=== PATIENT | female | born 1955 | race African-American/Black ===

== ENCOUNTER 2016-12-03 14:45 | Inpatient (IN) | payer OTHER ==
[2016-12-03 15:14] VITALS: BMI 24.4
--- NOTE | 2016-12-03 18:25 | HP ---
CIWA Score - CIWA Score Nausea/Vomitin-Mild Nausea/No Vomiting Muscle Tremors: 4-Moderate,w/Arms Extend Anxiety: 4-Mod. Anxious/Guarded Agitation: 4-Moderately Restless Paroxysmal Sweats: 1-Minimal Palms Moist Orientation: 0-Oriented Tacttile Disturbances: 0-None Auditory Disturbances: 0-None Visual Disturbances: 0-None Headache: 0-None Present CIWA-Ar Total Score: 14 Admission ROS B[facility] - HPI Chief Complaint: WITHDRAWAL SX Allergies/Adverse Reactions: Allergies Allergy/AdvReac Type Severity Reaction Status Date / Time Penicillins Allergy Severe Swelling Verified 12/03/16 16:48 History of Present Illness: 61 YEARS OLD FEMALE WITH LONG HISTORY OF ALCOHOL NICOTINE DEPENDENCE HAS SEIZURE ASTHMA AND DEPRESSION IS ADMITTED TO DETOX Exam Limitations: No Limitations - Ebola screening Have you traveled outside of the country in the last 21 days: No Have you had contact with anyone from an Ebola affected area: No Have you been sick,other than usual withdrawal symptoms: No Do you have a fever: No - Review of Systems Constitutional: Changes in sleep, Weight Stable EENT: reports: Blurred Vision (EYE GLASSES), Hearing Loss (LEFT EAR), Dental Problems (UPPER AND LOWER DENTURE AT HOME) Respiratory: reports: SOB with Exertion Cardiac: reports: No Symptoms Reported GI: reports: Nausea, Poor Fluid Intake, Abdominal cramping : reports: Other (LEFT KIDNEY REMOVAL 1970) Musculoskeletal: reports: Joint Pain, Muscle Pain, Muscle Weakness (ARTHRITIS OF THE SPINE BOTH LEGS) Integumentary: reports: No Symptoms Reported Neuro: reports: Seizure (SINCE ), Tremors Endocrine: reports: No Symptoms Reported Hematology: reports: No Symptoms Reported Psychiatric: reports: Judgement Intact, Orientated x3, Depressed Other Systems: Reviewed and Negative Patient History - Patient Medical History Hx Anemia: No Hx Asthma: Yes Hx Chronic Obstructive Pulmonary Disease (COPD): No Hx Cancer: No Hx Cardiac Disorders: No Hx Congestive Heart Failure: No Hx Hypertension: No Hx Hypercholesterolemia: No Hx Pacemaker: No HX Cerebrovascular Accident: No Hx Seizures: No Hx Dementia: No Hx Diabetes: No Hx Gastrointestinal Disorders: No Hx Liver Disease: No Hx Genitourinary Disorders: No Hx Sexually Transmitted Disorders: No Hx Renal Disease (ESRD): No Hx Thyroid Disease: No Hx Human Immunodeficiency Virus (HIV): No Hx Hepatitis C: No Hx Depression: Yes Hx Suicide Attempt: Yes (1976 DOSE) Hx Bipolar Disorder: No Hx Schizophrenia: No - Patient Surgical History Past Surgical History: Yes Hx Neurologic Surgery: No Hx Cataract Extraction: No Hx Cardiac Surgery: No Hx Lung Surgery: No Hx Breast Surgery: No Hx Breast Biopsy: No Hx Abdominal Surgery: No Hx Appendectomy: No Hx Cholecystectomy: No Hx Genitourinary Surgery: No Hx Orthopedic Surgery: Yes (LEG FX) Other Surgical History: BOTH ANKLES- 1979 Anesthesia Reaction: No - PPD History Previous Implant?: Yes Documented Results: Negative w/o proof Implanted On Prior [facility] Admission?: No PPD to be Administered?: Yes - Reproductive History Patient is a Female of Child Bearing Age (11 -55 yrs old): No Last Menstrual Period: 12/03/96 Patient : No - Smoking Cessation Smoking history: Current every day smoker Have you smoked in the past 12 months: Yes Aproximately how many cigarettes per day: 20 Cigars Per Day: 0 Hx Chewing Tobacco Use: No Initiated information on smoking cessation: Yes 'Breaking Loose' booklet given: 12/03/16 - Substance & Tx. History Hx Alcohol Use: Yes Hx Substance Use: No Substance Use Type: Alcohol Hx Substance Use Treatment: No - Substances Abused Alcohol Route: Oral Frequency: Daily Amount used: BEER- 1 SIX PACK Age of first use: 18 Date of Last Use: 12/03/16 Family Disease History - Family Disease History Family Disease History: Heart Disease: Father (), Mother (), Brother (), Respiratory: Sister (), Other: Father, Mother, Brother, Sister Admission Physical Exam S - Vital Signs Vital Signs: Vital Signs - 24 hr 12/03/16 15:12 Temperature 97.8 F Pulse Rate 82 Respiratory 20 Rate Blood Pressure 151/86 - Physical General Appearance: Yes: Nourished, Appropriately Dressed, Alcohol on Breath, Tremorous, Irritable, Sweating, Anxious HEENTM: Yes: Hearing grossly Normal, Normal ENT Inspection, Normocephalic, Normal Voice Respiratory: Yes: Chest Non-Tender, Lungs Clear, Normal Breath Sounds, No Respiratory Distress, No Accessory Muscle Use Neck: Yes: Supple, Trachea in good position Breast: Yes: Breasts Symetrical Cardiology: Yes: Regular Rhythm, Regular Rate, S1, S2 Abdominal: Yes: Normal Bowel Sounds, Non Tender, Soft Genitourinary: Yes: Within Normal Limits Back: Yes: Normal Inspection Musculoskeletal: Yes: full range of Motion (WALKER), Gait Steady, Back pain, Muscle Pain (RIGHT SHOULDER) Extremities: Yes: Normal Range of Motion (WALKER), Non-Tender, Tremors Neurological: Yes: Fully Oriented, Alert, Normal Response, Depressed Affect Integumentary: Yes: Warm Lymphatic: Yes: Within Normal Limits - Diagnostic (1) Alcohol dependence with uncomplicated withdrawal Current Visit: Yes Status: Acute (2) Seizure Current Visit: Yes Status: Chronic (3) Asthma Current Visit: Yes Status: Chronic Qualifiers: Asthma severity: mild intermittent Asthma complication type: with status asthmaticus Qualified Code(s): J45.22 - Mild intermittent asthma with status asthmaticus (4) Hard of hearing Current Visit: Yes Status: Chronic Qualifiers: Hearing loss type: conductive Laterality: left Contralateral hearing status: unspecified Qualified Code(s): H90.12 - Conductive hearing loss, unilateral, left ear, with unrestricted hearing on the contralateral side (5) Absent kidney Current Visit: Yes Status: Chronic Comment: LEFT KIDNEY REMOVED 1970 Cleared for Admission [facility] - Detox or Rehab [facility] Level of Care: Medically Managed Detox Regimen/Protocol: Librium [facility] Breath Alcohol Content Breath Alcohol Content: 0.161 Urine Pregancy Test - Result Urine Test Results: Negative- NO Line Present Urine Drug Screen - Results Drug Screen Negative: Yes
[2016-12-03] MEDS ORDERED: NICOTINE POLACRILEX 4 MG GUM BC PRN (18:30)
[2016-12-03] MEDS ORDERED: chlordiazePOXIDE HCL 25 MG CAPSULE PO ONE (18:30)
[2016-12-03] MEDS ORDERED: IBUPROFEN 400 MG TABLET (FP) PO PRN (18:30)
[2016-12-03] MEDS ORDERED: P-EPHED 60MG/TRIPROLIDI 2.5MG TABLET PO PRN (18:30)
[2016-12-03] MEDS ORDERED: chlordiazePOXIDE HCL 25 MG CAPSULE PO PRN (18:30)
[2016-12-03] MEDS ORDERED: NICOTINE 21 MG/24 HOURS TOPICAL PATCH TD PRN (18:30)
[2016-12-03] MEDS ORDERED: MAGNESIUM CITRATE 300 ML BOTTLE PO PRN (18:30)
[2016-12-03] MEDS ORDERED: LOPERAMIDE HCL 2 MG CAPSULE PO PRN (18:30)
[2016-12-03] MEDS ORDERED: MAG HYDROX/AL HYDROX/SIMETH 30 ML UNIT-DOSE CUP PO PRN (18:30)
[2016-12-03] MEDS ORDERED: hydrOXYzine PAMOATE 50 MG CAPSULE (FP) PO PRN (18:30)
[2016-12-03] MEDS ORDERED: guaiFENesin/D-METHORPHAN HB 10 ML UNIT-DOSE CUPS PO PRN (18:30)
[2016-12-03] MEDS ORDERED: MAGNESIUM HYDROX 2400MG/30ML ORAL SUSPENSION 30 ML CUP PO PRN (18:30)
[2016-12-03] MEDS ORDERED: MENTHOL/PHENOL 1 EACH UD MM PRN (18:30)
[2016-12-03] MEDS ORDERED: diphenhydrAMINE HCL 50 MG CAPSULE PO PRN (18:30)
[2016-12-03] MEDS ORDERED: ACETAMINOPHEN 325 MG TABLET (FP) PO PRN (18:30)
[2016-12-03] MEDS: GABAPENTIN 300 MG CAPSULE (FP) PO SCH (22:12)
[2016-12-03] MEDS: THIAMINE HCL 100 MG TABLET (FP) PO SCH (22:12)
[2016-12-03] MEDS: CYCLOBENZAPRINE HCL 10 MG TABLET (FP) PO SCH (22:12)
[2016-12-03] MEDS: chlordiazePOXIDE HCL 25 MG CAPSULE PO SCH (22:12)
[2016-12-03] MEDS: RANITIDINE HCL 150 MG TABLET (FP) PO SCH (22:12)
[2016-12-03] MEDS: NAPROXEN 500 MG TABLET (FP) PO PRN (22:12)
[2016-12-04 00:49] LABS: URINE APPEARANCE CLEAR; URINE BILIRUBIN NEGATIVE (NEGATIVE); URINE BLOOD NEGATIVE (NEGATIVE); URINE COLOR LTYELLOW; URINE GLUCOSE (UA) NEGATIVE (NEGATIVE); URINE KETONE NEGATIVE (NEGATIVE); URINE LEUK ESTERASE NEGATIVE (NEGATIVE); URINE NITRITE NEGATIVE (NEGATIVE); URINE PROTEIN NEGATIVE (NEGATIVE); URINE UROBILINOGEN NEGATIVE mg/dL (0.2-1.0)
[2016-12-04] MEDS: CYCLOBENZAPRINE HCL 10 MG TABLET (FP) PO SCH ×3 (05:51→22:30)
[2016-12-04] MEDS: chlordiazePOXIDE HCL 25 MG CAPSULE PO SCH ×4 (05:51→22:30)
[2016-12-04 09:54] LABS: MCHC 32.9 g/dl (32.0-36.0); MEAN CELL VOLUME 88.2 fl (80-96); MEAN PLT VOLUME 8.6 fl (7.5-11.1); PLATELET COUNT 161 K/MM3 (134-434); RDW 13.8 % (11.6-15.6)
[2016-12-04 10:17] LABS: ALBUMIN 3.5 g/dl (3.4-5.0); ALK PHOS 91 U/L (45-117); ANION GAP 7 (8-16); BILIRUBIN,TOTAL 0.9 mg/dL (0.2-1.0); CALCIUM 8.9 mg/dL (8.5-10.1); CO2 29 mmol/L (21-32); CREATININE 0.4 mg/dL (0.55-1.02); GLUCOSE,RANDOM 79 mg/dL (74-106); SGOT/AST 29 U/L (15-37); SGPT/ALT 29 U/L (12-78); TOT PROT 6.8 g/dl (6.4-8.2)
--- NOTE | 2016-12-04 10:33 | CONSULT ---
[facility] Psychiatric Consult - Data Date of interview: 12/04/16 Admission source: [facility] Identifying data: This is the first detox. admission for this 61 year old single AA female, mother of 9 grown children, she lives alone in [facility] and supported on public assistance. Substance Abuse History: Patient reports age of first drink 18, she drinkds daily 1-six paks of beer, she smokes cigarettes 1PPD. Medical History: Asthma, acid reflux, and alcohol withdrawal seizures. Psychiatric History: Patient reports no history of psychiatric treatment, however states overdosed with alcohol and pills in 1976, states she woke up in the morning and "was ok". States she feels well, not depressed, denies panic and anxiety disorder and no manic episodes. Physical/Sexual Abuse/Trauma History: Denies history of sexual, physical and verbal abuse. Mental Status Exam - Mental Status Exam Alert and Oriented to: Time, Place, Person Cognitive Function: Fair Patient Appearance: Unkempt Mood: Hopeful (patient wants to continue treatment in rehab.) Affect: Appropriate, Mood Congruent Patient Behavior: Appropriate, Cooperative Speech Pattern: Clear, Appropriate Voice Loudness: Normal Thought Process: Intact, Goal Oriented Thought Disorder: Not Present Hallucinations: Denies Suicidal Ideation: Denies Homicidal Ideation: Denies Insight/Judgement: Fair Sleep: Fair Appetite: Good Muscle strength/Tone: Normal Gait/Station: Normal Psychiatric Findings - Problem List ([place] 1, 2,3) (1) Alcohol dependence with uncomplicated withdrawal Current Visit: Yes Status: Acute (2) Nicotine dependence Current Visit: Yes Status: Acute - Initial Treatment Plan Initial Treatment Plan: will continue detox. protocol, psychoeducation and supports provided.
[2016-12-04] MEDS: RANITIDINE HCL 150 MG TABLET (FP) PO SCH ×2 (10:35→22:31)
[2016-12-04] MEDS: MONTELUKAST NA 10 MG TABLET PO SCH (10:35)
[2016-12-04] MEDS: PRENATAL VITAMINS W/ FOLIC ACID TABLET (FP) PO SCH (10:35)
[2016-12-04] MEDS: PHENYTOIN NA EXTENDED 100 MG CAPSULE (FP) PO SCH (10:35)
--- NOTE | 2016-12-04 12:34 | PN ---
[facility] CIWA - CIWA Score Nausea/Vomitin-No Nausea/No Vomiting Muscle Tremors: 3 Anxiety: 3 Agitation: 3 Paroxysmal Sweats: 3 Orientation: 0-Oriented Tacttile Disturbances: 0-None Auditory Disturbances: 0-None Visual Disturbances: 0-None Headache: 0-None Present CIWA-Ar Total Score: 12 [facility] Progress Note (SOAP) Subjective: irritable agitation interrupted sleep body aches sweats Objective: 12/04/16 12:34 Vital Signs Temperature 97.2 F L 12/04/16 09:43 Pulse Rate 96 H 12/04/16 09:43 Respiratory Rate 18 12/04/16 09:43 Blood Pressure 144/97 12/04/16 09:43 O2 Sat by Pulse Oximetry (%) Laboratory Tests 12/03/16 12/04/16 12/04/16 21:42 07:50 07:50 WBC 3.0 L RBC 4.86 Hgb 14.1 Hct 42.9 MCV 88.2 MCH 29.0 MCHC 32.9 RDW 13.8 Plt Count 161 MPV 8.6 Sodium 139 Potassium 4.0 Chloride 103 Carbon Dioxide 29 Anion Gap 7 L BUN 8 Creatinine 0.4 L Creat Clearance w eGFR > 60 Random Glucose 79 Calcium 8.9 Total Bilirubin 0.9 AST 29 ALT 29 Alkaline Phosphatase 91 Total Protein 6.8 Albumin 3.5 Urine Color Ltyellow Urine Appearance Clear Urine pH 6.0 Ur Specific [place] <= 1.005 Urine Protein Negative Urine Glucose (UA) Negative Urine Ketones Negative Urine Blood Negative Urine Nitrite Negative Urine Bilirubin Negative Urine Urobilinogen Negative Phenytoin Valproic Acid RPR Titer 12/04/16 12/04/16 12/04/16 07:50 07:50 08:10 WBC RBC Hgb Hct MCV MCH MCHC RDW Plt Count MPV Sodium Potassium Chloride Carbon Dioxide Anion Gap BUN Creatinine Creat Clearance w eGFR Random Glucose Calcium Total Bilirubin AST ALT Alkaline Phosphatase Total Protein Albumin Urine Color Urine Appearance Urine pH Ur Specific [place] Urine Protein Urine Glucose (UA) Urine Ketones Urine Blood Urine Nitrite Urine Bilirubin Urine Urobilinogen Phenytoin < 2.5 L Valproic Acid 4.481 L RPR Titer Nonreactive AAOx3 ambulating no acute distress dilantin level <2.5 continue dilantin as ordered repeat dilantin level for Wednesday. Assessment: 12/04/16 12:39 withdrawal sx Plan: continue detox increase fluids
[2016-12-04] MEDS: GABAPENTIN 300 MG CAPSULE (FP) PO SCH (22:30)
[2016-12-04] MEDS: NAPROXEN 500 MG TABLET (FP) PO PRN (22:30)
[2016-12-04] MEDS: THIAMINE HCL 100 MG TABLET (FP) PO SCH (22:31)
[2016-12-05] MEDS: chlordiazePOXIDE HCL 25 MG CAPSULE PO SCH ×3 (05:25→18:07)
[2016-12-05] MEDS: CYCLOBENZAPRINE HCL 10 MG TABLET (FP) PO SCH ×3 (05:25→22:36)
[2016-12-05] MEDS: MONTELUKAST NA 10 MG TABLET PO SCH (11:01)
[2016-12-05] MEDS: PRENATAL VITAMINS W/ FOLIC ACID TABLET (FP) PO SCH (11:01)
[2016-12-05] MEDS: RANITIDINE HCL 150 MG TABLET (FP) PO SCH ×2 (11:02→22:36)
[2016-12-05] MEDS: PHENYTOIN NA EXTENDED 100 MG CAPSULE (FP) PO SCH (11:02)
--- NOTE | 2016-12-05 13:41 | PN ---
S CIWA - CIWA Score Nausea/Vomitin Muscle Tremors: 2 Anxiety: 3 Agitation: 2 Paroxysmal Sweats: 2 Orientation: 1-Uncertain about Date Tacttile Disturbances: 2-Mild Itch/Numbness/Burn Auditory Disturbances: 0-None Visual Disturbances: 1-Very Mild Sensitivity Headache: 2-Mild CIWA-Ar Total Score: 18 [facility] Progress Note (SOAP) Subjective: irritability, anxiety, diarrhea and generalized muscle aches Objective: 12/05/16 13:41 Vital Signs - 8 hr 12/05/16 12/05/16 06:55 11:11 Temperature 96.1 F L 97.2 F L Pulse Rate 60 85 Respiratory 16 18 Rate Blood Pressure 121/68 123/61 Laboratory Last Values WBC 3.0 K/mm3 (4.0-10.0) L 12/04/16 07:50 RBC 4.86 M/mm3 (3.60-5.2) 12/04/16 07:50 Hgb 14.1 GM/dL (10.7-15.3) 12/04/16 07:50 Hct 42.9 % (32.4-45.2) 12/04/16 07:50 MCV 88.2 fl (80-96) 12/04/16 07:50 MCH 29.0 pg (25.7-33.7) 12/04/16 07:50 MCHC 32.9 g/dl (32.0-36.0) 12/04/16 07:50 RDW 13.8 % (11.6-15.6) 12/04/16 07:50 Plt Count 161 K/MM3 (134-434) 12/04/16 07:50 MPV 8.6 fl (7.5-11.1) 12/04/16 07:50 Sodium 139 mmol/L (136-145) 12/04/16 07:50 Potassium 4.0 mmol/L (3.5-5.1) 12/04/16 07:50 Chloride 103 mmol/L (98-107) 12/04/16 07:50 Carbon Dioxide 29 mmol/L (21-32) 12/04/16 07:50 Anion Gap 7 (8-16) L 12/04/16 07:50 BUN 8 mg/dL (7-18) 12/04/16 07:50 Creatinine 0.4 mg/dL (0.55-1.02) L 12/04/16 07:50 Creat Clearance w eGFR > 60 (>60) 12/04/16 07:50 Random Glucose 79 mg/dL (74-106) 12/04/16 07:50 Calcium 8.9 mg/dL (8.5-10.1) 12/04/16 07:50 Total Bilirubin 0.9 mg/dL (0.2-1.0) 12/04/16 07:50 AST 29 U/L (15-37) 12/04/16 07:50 ALT 29 U/L (12-78) 12/04/16 07:50 Alkaline Phosphatase 91 U/L (45-117) 12/04/16 07:50 Total Protein 6.8 g/dl (6.4-8.2) 12/04/16 07:50 Albumin 3.5 g/dl (3.4-5.0) 12/04/16 07:50 Urine Color Ltyellow 12/03/16 21:42 Urine Appearance Clear 12/03/16 21:42 Urine pH 6.0 (5.0-8.0) 12/03/16 21:42 Ur Specific [place] <= 1.005 (1.005-1.025) 12/03/16 21:42 Urine Protein Negative (NEGATIVE) 12/03/16 21:42 Urine Glucose (UA) Negative (NEGATIVE) 12/03/16 21:42 Urine Ketones Negative (NEGATIVE) 12/03/16 21:42 Urine Blood Negative (NEGATIVE) 12/03/16 21:42 Urine Nitrite Negative (NEGATIVE) 12/03/16 21:42 Urine Bilirubin Negative (NEGATIVE) 12/03/16 21:42 Urine Urobilinogen Negative mg/dL (0.2-1.0) 12/03/16 21:42 Phenytoin < 2.5 ug/ml (10.0-20.0) L 12/04/16 08:10 Valproic Acid 4.481 ug/ml (50-100) L 12/04/16 07:50 RPR Titer Nonreactive (NONREACTIVE) 12/04/16 07:50 labs noted Assessment: 12/05/16 13:41 withdrawal sx Plan: continue detox
[2016-12-05] MEDS: GABAPENTIN 300 MG CAPSULE (FP) PO SCH (22:35)
[2016-12-05] MEDS: NAPROXEN 500 MG TABLET (FP) PO PRN (22:36)
[2016-12-05] MEDS: chlordiazePOXIDE 5 MG CAPSULE PO SCH (22:36)
[2016-12-05] MEDS: THIAMINE HCL 100 MG TABLET (FP) PO SCH (22:36)
[2016-12-05] MEDS ORDERED: ALBUTEROL SO4 6.7 GM HFA INHALER IH ONE (22:43)
[2016-12-05] MEDS ORDERED: ALBUTEROL SO4 2.5/IPRATROPIUM 0.5 INH SOL 3 ML VIAL.NEB. NEB PRN (22:44)
[2016-12-05] MEDS ORDERED: ALBUTEROL SO4 6.7 GM HFA INHALER IH PRN (22:44)
[2016-12-06] MEDS: CYCLOBENZAPRINE HCL 10 MG TABLET (FP) PO SCH ×3 (05:54→22:34)
[2016-12-06] MEDS: chlordiazePOXIDE 5 MG CAPSULE PO SCH ×3 (05:55→17:18)
[2016-12-06] MEDS ORDERED: ALBUTEROL SO4 2.5/IPRATROPIUM 0.5 INH SOL 3 ML VIAL.NEB. NEB PRN (09:42)
--- NOTE | 2016-12-06 09:48 | PN ---
[facility] Progress Note (SOAP) Subjective: Sweating,interrupted sleep,restless Objective: 12/06/16 09:46 Vital Signs - 8 hr 12/06/16 12/06/16 03:30 06:39 Temperature 97.2 F L Pulse Rate 77 Respiratory 18 18 Rate Blood Pressure 131/88 Laboratory Tests 12/03/16 12/04/16 12/04/16 21:42 07:50 07:50 WBC 3.0 L RBC 4.86 Hgb 14.1 Hct 42.9 MCV 88.2 MCH 29.0 MCHC 32.9 RDW 13.8 Plt Count 161 MPV 8.6 Sodium 139 Potassium 4.0 Chloride 103 Carbon Dioxide 29 Anion Gap 7 L BUN 8 Creatinine 0.4 L Creat Clearance w eGFR > 60 Random Glucose 79 Calcium 8.9 Total Bilirubin 0.9 AST 29 ALT 29 Alkaline Phosphatase 91 Total Protein 6.8 Albumin 3.5 Urine Color Ltyellow Urine Appearance Clear Urine pH 6.0 Ur Specific [place] <= 1.005 Urine Protein Negative Urine Glucose (UA) Negative Urine Ketones Negative Urine Blood Negative Urine Nitrite Negative Urine Bilirubin Negative Urine Urobilinogen Negative Phenytoin Valproic Acid RPR Titer 12/04/16 12/04/16 12/04/16 07:50 07:50 08:10 WBC RBC Hgb Hct MCV MCH MCHC RDW Plt Count MPV Sodium Potassium Chloride Carbon Dioxide Anion Gap BUN Creatinine Creat Clearance w eGFR Random Glucose Calcium Total Bilirubin AST ALT Alkaline Phosphatase Total Protein Albumin Urine Color Urine Appearance Urine pH Ur Specific [place] Urine Protein Urine Glucose (UA) Urine Ketones Urine Blood Urine Nitrite Urine Bilirubin Urine Urobilinogen Phenytoin < 2.5 L Valproic Acid 4.481 L RPR Titer Nonreactive labs noted Lungs : grossly clear Assessment: 12/06/16 09:47 Withdrawal sx. Asthma Plan: Continue detox duoneb nebulizer qid
[2016-12-06] MEDS: ALBUTEROL SO4 2.5/IPRATROPIUM 0.5 INH SOL 3 ML VIAL.NEB. NEB SCH ×4 (10:04→23:03)
[2016-12-06] MEDS: PRENATAL VITAMINS W/ FOLIC ACID TABLET (FP) PO SCH (10:47)
[2016-12-06] MEDS: MONTELUKAST NA 10 MG TABLET PO SCH (10:47)
[2016-12-06] MEDS: RANITIDINE HCL 150 MG TABLET (FP) PO SCH ×2 (10:47→23:05)
[2016-12-06] MEDS: PHENYTOIN NA EXTENDED 100 MG CAPSULE (FP) PO SCH (10:47)
[2016-12-06] MEDS: NAPROXEN 500 MG TABLET (FP) PO PRN ×2 (10:47→22:34)
[2016-12-06] MEDS: GABAPENTIN 300 MG CAPSULE (FP) PO SCH (22:33)
[2016-12-06] MEDS: chlordiazePOXIDE HCL 10 MG CAPSULE PO SCH (22:34)
[2016-12-06] MEDS: THIAMINE HCL 100 MG TABLET (FP) PO SCH (22:34)
[2016-12-07] MEDS: CYCLOBENZAPRINE HCL 10 MG TABLET (FP) PO SCH (05:54)
[2016-12-07] MEDS: chlordiazePOXIDE HCL 10 MG CAPSULE PO SCH ×2 (05:54→11:42)
--- NOTE | 2016-12-07 09:25 | DS ---
[facility] Detox Discharge Summary Admission Date: 12/03/16 Discharge Date: 12/07/16 - History Present History: Alcohol Dependence - Physical Exam Results Vital Signs: Vital Signs Temperature 97.2 F L 12/07/16 06:19 Pulse Rate 67 12/07/16 06:19 Respiratory Rate 18 12/07/16 06:19 Blood Pressure 124/78 12/07/16 06:19 O2 Sat by Pulse Oximetry (%) - Treatment Hospital Course: Detox Protocol Followed, Detoxed Safely, Responded well, Discharged Condition Good, Rehab Referral Accepted - Medication Discharge Medications: Ambulatory Orders Divalproex [Depakote -] 500 mg PO DAILY 12/03/16 Fluoxetine HCl [Prozac -] 20 mg PO DAILY 12/03/16 Gabapentin [Neurontin -] 600 mg PO HS 12/03/16 Montelukast Sodium [Singulair] 10 mg PO DAILY 12/03/16 Naproxen [Naprosyn -] 375 mg PO BID 12/03/16 Omeprazole 20 mg PO DAILY 12/03/16 - Diagnosis (1) Alcohol dependence with uncomplicated withdrawal Current Visit: Yes Status: Chronic (2) Nicotine dependence Current Visit: Yes Status: Chronic Qualifiers: Nicotine product type: cigarettes (3) Asthma Current Visit: Yes Status: Chronic Qualifiers: Asthma severity: mild intermittent Asthma complication type: with status asthmaticus Qualified Code(s): J45.22 - Mild intermittent asthma with status asthmaticus - AMA Did Patient Leave Against Medical Advice: No (rehab facility is being arranged)
[2016-12-07 10:24] VITALS: BP 130/77; PULSE 87; TEMP 97.5
[2016-12-07] MEDS: PHENYTOIN NA EXTENDED 100 MG CAPSULE (FP) PO SCH (11:16)
[2016-12-07] MEDS: PRENATAL VITAMINS W/ FOLIC ACID TABLET (FP) PO SCH (11:17)
[2016-12-07] MEDS: MONTELUKAST NA 10 MG TABLET PO SCH (11:18)
[2016-12-07] MEDS: ALBUTEROL SO4 2.5/IPRATROPIUM 0.5 INH SOL 3 ML VIAL.NEB. NEB SCH (11:20)
--- NOTE | 2016-12-07 17:04 | EKG ---
Test Reason : Blood Pressure : / mmHG Vent. Rate : 080 BPM Atrial Rate : 080 BPM P-R Int : 134 ms QRS Dur : 084 ms QT Int : 404 ms P-R-T Axes : 074 021 033 degrees QTc Int : 465 ms SINUS RHYTHM WITH OCCASIONAL PREMATURE VENTRICULAR COMPLEXES OTHERWISE NORMAL ECG NO PREVIOUS ECGS AVAILABLE Confirmed by RUDI GONZALEZ, MARTIN ([id number]) on 12/07/2016 5:04:30 PM Referred By: John Hernández Confirmed By:MARTIN GRIJALVA MD
== END 2016-12-07 12:35 | disposition other institution (70) | DRG 775 ==
LOC: YASAS 14:45 → Y6N 18:42
PROVIDERS: ADMIT Internal Medicine; ATTEND Internal Medicine
PROC: HZ2ZZZZ Detoxification Services for Substance Abuse Treatment (ICD-10-PCS; principal; 2016-12-03)
DX: F10.230 Alcohol dependence with withdrawal, uncomplicated (principal); F17.210 Nicotine dependence, cigarettes, uncomplicated; F32.9 Major depressive disorder, single episode, unspecified; J45.22 Mild intermittent asthma with status asthmaticus; Z91.5 Personal history of self-harm
CPT/HCPCS: 36415; 80053; 80164; 80185; 81003; 85027; 86593; 93005; 93010; 94640

== ENCOUNTER 2016-12-07 12:56 | Inpatient (IN) | payer OTHER ==
--- NOTE | 2016-12-07 13:21 | HP ---
Psychiatrist Admission - Data Date of interview: 12/07/16 Admission source: 6N Identifying data: This is the first [facility] admission for this 61 years old Black female, mother of 9 children, unemployed on SSI, living alone in an apartment in [facility] Medical History: Significant for Asthma, GERD, Seizure Disorder, Arthritis and history of surgery for removal of left kidney in 1970 and fracture of both legs. Smokes cigarettes 1ppd Psychiatric History: Reports being prescribed Prozac 10 mg/day by her primary care physician for depression. Told junior technical writer that she has been taking that medication for a long time. Reports that her depression stemmed from psychosocial stressor saying:"Things getting on my nerve". Reports that in 1976 due to conflict with her , she took an overdose of alcohol and pills in a suicidal attempt. Claims she woke up the next day and was ok. She sought no medical attention. At present, reports feeling mildly depressed and sleeping poorly Physical/Sexual Abuse/Trauma History: Denies history of emotional, physical and sexual abuse as well as DV relationship Additional Comment: No criminal history Allergies/Adverse Reactions: Allergies Allergy/AdvReac Type Severity Reaction Status Date / Time Penicillins Allergy Severe Swelling Verified 12/03/16 16:48 Date of last physical exam: 12/03/16 Concur with the findings of this exam: Yes - Substance Abuse/Tx History Hx Alcohol Use: Yes Hx Substance Use: No Substance Use Type: Alcohol (Started drinking alcohol at age 18, consumes a 6pk daily. Last drink on 12/03/16) Hx Substance Use Treatment: Yes (2 previous inpt detox) - Admission Criteria Previous failed treatment: Yes Poor recovery environment: Yes Comorbidities: Yes Lacks judgement: Yes Mental Status Exam - Mental Status Exam Alert and Oriented to: Time, Place, Person Cognitive Function: Fair Patient Appearance: Well Groomed Mood: Depressed (mildly) Affect: Appropriate Patient Behavior: Cooperative Speech Pattern: Clear Voice Loudness: Normal Thought Process: Intact, Goal Oriented Thought Disorder: Not Present Hallucinations: Denies Suicidal Ideation: Denies Homicidal Ideation: Denies Insight/Judgement: Fair Sleep: Poorly Appetite: Good Muscle strength/Tone: Normal Gait/Station: Normal Psychiatric Findings - Problem List ([place] 1, 2,3) (1) Alcohol dependence Current Visit: Yes Status: Acute (2) Nicotine dependence Current Visit: No Status: Chronic Qualifiers: Nicotine product type: cigarettes (3) Alcohol-induced mood disorder Current Visit: Yes Status: Acute (4) Alcohol-induced sleep disorder Current Visit: Yes Status: Acute (5) Asthma Current Visit: No Status: Chronic Qualifiers: Asthma severity: mild intermittent Asthma complication type: with status asthmaticus Qualified Code(s): J45.22 - Mild intermittent asthma with status asthmaticus (6) Hard of hearing Current Visit: No Status: Chronic Qualifiers: Hearing loss type: conductive Laterality: left Contralateral hearing status: unspecified Qualified Code(s): H90.12 - Conductive hearing loss, unilateral, left ear, with unrestricted hearing on the contralateral side (7) Seizure Current Visit: No Status: Chronic (8) Absent kidney Current Visit: No Status: Chronic Comment: LEFT KIDNEY REMOVED 1970 - Initial Treatment Plan Initial Treatment Plan: Monitor progress
[2016-12-07] MEDS ORDERED: ACETAMINOPHEN 325 MG TABLET (FP) PO PRN (15:04)
[2016-12-07] MEDS ORDERED: MAGNESIUM CITRATE 300 ML BOTTLE PO PRN (15:04)
[2016-12-07] MEDS ORDERED: MAGNESIUM HYDROX 2400MG/30ML ORAL SUSPENSION 30 ML CUP PO PRN (15:04)
[2016-12-07] MEDS ORDERED: IBUPROFEN 400 MG TABLET (FP) PO PRN (15:04)
[2016-12-07] MEDS ORDERED: MAG HYDROX/AL HYDROX/SIMETH 30 ML UNIT-DOSE CUP PO PRN (15:04)
[2016-12-07] MEDS ORDERED: P-EPHED 60MG/TRIPROLIDI 2.5MG TABLET PO PRN (15:04)
[2016-12-07] MEDS ORDERED: hydrOXYzine PAMOATE 50 MG CAPSULE (FP) PO PRN (15:04)
[2016-12-07] MEDS ORDERED: MENTHOL/PHENOL 1 EACH UD MM PRN (15:04)
[2016-12-07] MEDS ORDERED: diphenhydrAMINE HCL 50 MG CAPSULE PO PRN (15:04)
[2016-12-07] MEDS ORDERED: NICOTINE POLACRILEX 2 MG GUM BUC PRN (15:04)
[2016-12-07] MEDS ORDERED: guaiFENesin/D-METHORPHAN HB 10 ML UNIT-DOSE CUPS PO PRN (15:04)
--- NOTE | 2016-12-07 15:07 | HP ---
[facility] Rehab Assess/Revision - Admission History Admitted to Rehab from: [facility] Date of Admission to Rehab: 12/07/2016 - Vital signs Vital Signs: Vital Signs Period Temp Pulse Resp BP Sys/Lozano Pulse Ox Last 24 Hr 97.5 F 88 18 132/68 - Findings Detox History & Physical reviewed: Yes Concur with findings: Yes Inpatient Rehab Admission - Initial Determination Are CD services needed?: Yes Free of communicable disease: Yes Not in need of hospitalization: Yes - Rehab Admission Criteria Comorbidities: Yes Patient is meeting Inpatient Rehab admission criteria:: Yes
[2016-12-07] MEDS ORDERED: ALBUTEROL SO4 18 GM HFA INHALER IH SCH (15:15)
[2016-12-07] MEDS ORDERED: PHENYTOIN NA EXTENDED 100 MG CAPSULE (FP) PO ONE (15:21)
[2016-12-07] MEDS: GABAPENTIN 300 MG CAPSULE (FP) PO SCH (21:31)
[2016-12-07] MEDS: THIAMINE HCL 100 MG TABLET (FP) PO SCH (21:31)
[2016-12-07] MEDS: RANITIDINE HCL 150 MG TABLET (FP) PO SCH (21:31)
[2016-12-07] MEDS ORDERED: GABAPENTIN 300 MG CAPSULE (FP) PO SCH (22:00)
[2016-12-08] MEDS: GABAPENTIN 300 MG CAPSULE (FP) PO SCH ×3 (06:19→21:19)
[2016-12-08] MEDS: PHENYTOIN NA EXTENDED 100 MG CAPSULE (FP) PO SCH (10:01)
[2016-12-08] MEDS: NICOTINE 14 MG/24 HOURS TOPICAL PATCH TD SCH (10:01)
[2016-12-08] MEDS: MONTELUKAST NA 10 MG TABLET PO SCH (10:01)
[2016-12-08] MEDS: RANITIDINE HCL 150 MG TABLET (FP) PO SCH ×2 (10:01→21:19)
[2016-12-08] MEDS: PRENATAL VITAMINS W/ FOLIC ACID TABLET (FP) PO SCH (10:01)
[2016-12-08] MEDS: THIAMINE HCL 100 MG TABLET (FP) PO SCH (21:19)
[2016-12-09] MEDS: GABAPENTIN 300 MG CAPSULE (FP) PO SCH ×2 (05:53→13:58)
[2016-12-09] MEDS: PHENYTOIN NA EXTENDED 100 MG CAPSULE (FP) PO SCH (10:04)
[2016-12-09] MEDS: PRENATAL VITAMINS W/ FOLIC ACID TABLET (FP) PO SCH (10:04)
[2016-12-09] MEDS: MONTELUKAST NA 10 MG TABLET PO SCH (10:04)
[2016-12-09] MEDS: NICOTINE 14 MG/24 HOURS TOPICAL PATCH TD SCH (10:04)
[2016-12-09] MEDS: RANITIDINE HCL 150 MG TABLET (FP) PO SCH ×2 (10:05→21:07)
[2016-12-09] MEDS: THIAMINE HCL 100 MG TABLET (FP) PO SCH (21:07)
[2016-12-09] MEDS: GABAPENTIN 100 MG CAPSULE (FP) PO SCH (21:07)
[2016-12-10] MEDS: LOPERAMIDE HCL 2 MG CAPSULE PO PRN ×2 (02:27→10:25)
[2016-12-10] MEDS: GABAPENTIN 100 MG CAPSULE (FP) PO SCH ×3 (06:10→21:05)
[2016-12-10] MEDS: PHENYTOIN NA EXTENDED 100 MG CAPSULE (FP) PO SCH (10:03)
[2016-12-10] MEDS: MONTELUKAST NA 10 MG TABLET PO SCH (10:03)
[2016-12-10] MEDS: PRENATAL VITAMINS W/ FOLIC ACID TABLET (FP) PO SCH (10:03)
[2016-12-10] MEDS: RANITIDINE HCL 150 MG TABLET (FP) PO SCH ×2 (10:04→21:05)
[2016-12-10] MEDS: NICOTINE 14 MG/24 HOURS TOPICAL PATCH TD SCH (10:04)
[2016-12-10 14:02] LABS: ALBUMIN 3.5 g/dl (3.4-5.0); ANION GAP 9 (8-16); BILIRUBIN,TOTAL 0.6 mg/dL (0.2-1.0); CALCIUM 9.1 mg/dL (8.5-10.1); CO2 29 mmol/L (21-32); CREATININE 0.5 mg/dL (0.55-1.02); GLUCOSE,RANDOM 128 mg/dL (74-106); SGOT/AST 26 U/L (15-37); SGPT/ALT 38 U/L (12-78)
[2016-12-10 14:03] LABS: ALK PHOS 103 U/L (45-117)
[2016-12-10] MEDS ORDERED: DIPHENOXYLATE 2.5/ATROPINE.025 1 COMBO TABLET PO PRN (15:10)
[2016-12-10] MEDS ORDERED: DIPHENOXYLATE 2.5/ATROPINE.025 1 COMBO TABLET PO ONE (15:36)
[2016-12-10] MEDS ORDERED: PHENYTOIN NA EXTENDED 100 MG CAPSULE (FP) PO ONE (15:37)
[2016-12-10] MEDS: THIAMINE HCL 100 MG TABLET (FP) PO SCH (21:05)
[2016-12-11] MEDS: GABAPENTIN 100 MG CAPSULE (FP) PO SCH ×3 (06:05→21:02)
[2016-12-11] MEDS: NICOTINE 14 MG/24 HOURS TOPICAL PATCH TD SCH (09:57)
[2016-12-11] MEDS: MONTELUKAST NA 10 MG TABLET PO SCH (09:57)
[2016-12-11] MEDS: RANITIDINE HCL 150 MG TABLET (FP) PO SCH ×2 (09:57→21:02)
[2016-12-11] MEDS: PHENYTOIN NA EXTENDED 100 MG CAPSULE (FP) PO SCH (09:57)
[2016-12-11] MEDS: PRENATAL VITAMINS W/ FOLIC ACID TABLET (FP) PO SCH (09:58)
[2016-12-11 13:53] LABS: BASOPHIL 0.7 % (0-2.0); EOSINOPHIL 3.7 % (0-4.5); MCH 29.3 pg (25.7-33.7); MCHC 32.6 g/dl (32.0-36.0); MEAN CELL VOLUME 89.7 fl (80-96); MEAN PLT VOLUME 9.2 fl (7.5-11.1); NEUTROPHILS 37.3 % (42.8-82.8); PLATELET COUNT 193 K/MM3 (134-434); RDW 13.9 % (11.6-15.6); WHITE BLOOD COUNT 4.2 K/mm3 (4.0-10.0)
[2016-12-11 14:06] LABS: ALBUMIN 3.8 g/dl (3.4-5.0); AMYLASE 62 U/L (25-115); ANION GAP 10 (8-16); BILIRUBIN,TOTAL 0.5 mg/dL (0.2-1.0); CALCIUM 9.2 mg/dL (8.5-10.1); CO2 26 mmol/L (21-32); CREATININE 0.5 mg/dL (0.55-1.02); GLUCOSE,RANDOM 77 mg/dL (74-106); SGOT/AST 29 U/L (15-37); SGPT/ALT 37 U/L (12-78); TOT PROT 7.6 g/dl (6.4-8.2)
[2016-12-11 14:07] LABS: ALK PHOS 110 U/L (45-117)
[2016-12-11] MEDS ORDERED: PHENYTOIN NA EXTENDED 100 MG CAPSULE (FP) PO ONE (15:00)
[2016-12-11] MEDS: THIAMINE HCL 100 MG TABLET (FP) PO SCH (21:02)
[2016-12-12] MEDS: GABAPENTIN 100 MG CAPSULE (FP) PO SCH ×3 (06:17→21:07)
[2016-12-12] MEDS: PRENATAL VITAMINS W/ FOLIC ACID TABLET (FP) PO SCH (09:28)
[2016-12-12] MEDS: NICOTINE 14 MG/24 HOURS TOPICAL PATCH TD SCH (09:28)
[2016-12-12] MEDS: PHENYTOIN NA EXTENDED 100 MG CAPSULE (FP) PO SCH (09:28)
[2016-12-12] MEDS: MONTELUKAST NA 10 MG TABLET PO SCH (09:28)
[2016-12-12] MEDS: RANITIDINE HCL 150 MG TABLET (FP) PO SCH ×2 (09:28→21:07)
[2016-12-12] MEDS: THIAMINE HCL 100 MG TABLET (FP) PO SCH (21:07)
[2016-12-13] MEDS: GABAPENTIN 100 MG CAPSULE (FP) PO SCH ×3 (06:13→21:22)
[2016-12-13] MEDS: PHENYTOIN NA EXTENDED 100 MG CAPSULE (FP) PO SCH (09:54)
[2016-12-13] MEDS: NICOTINE 14 MG/24 HOURS TOPICAL PATCH TD SCH (09:54)
[2016-12-13] MEDS: PRENATAL VITAMINS W/ FOLIC ACID TABLET (FP) PO SCH (09:54)
[2016-12-13] MEDS: RANITIDINE HCL 150 MG TABLET (FP) PO SCH ×2 (09:55→21:22)
[2016-12-13] MEDS: MONTELUKAST NA 10 MG TABLET PO SCH (09:55)
[2016-12-13] MEDS ORDERED: IBUPROFEN 400 MG TABLET (FP) PO PRN (10:34)
[2016-12-13] MEDS: CYCLOBENZAPRINE HCL 10 MG TABLET (FP) PO PRN (12:38)
[2016-12-13] MEDS: THIAMINE HCL 100 MG TABLET (FP) PO SCH (21:22)
[2016-12-14] MEDS: CYCLOBENZAPRINE HCL 10 MG TABLET (FP) PO PRN ×2 (04:48→21:47)
[2016-12-14] MEDS: GABAPENTIN 100 MG CAPSULE (FP) PO SCH (06:23)
[2016-12-14] MEDS: PHENYTOIN NA EXTENDED 100 MG CAPSULE (FP) PO SCH (09:58)
[2016-12-14] MEDS: RANITIDINE HCL 150 MG TABLET (FP) PO SCH ×2 (09:58→21:47)
[2016-12-14] MEDS: NICOTINE 14 MG/24 HOURS TOPICAL PATCH TD SCH (09:58)
[2016-12-14] MEDS: MONTELUKAST NA 10 MG TABLET PO SCH (09:58)
[2016-12-14] MEDS: PRENATAL VITAMINS W/ FOLIC ACID TABLET (FP) PO SCH (09:58)
[2016-12-14] MEDS: GABAPENTIN 300 MG CAPSULE (FP) PO SCH ×2 (14:18→21:47)
[2016-12-14] MEDS: NAPROXEN 500 MG TABLET (FP) PO SCH ×2 (14:19→21:47)
[2016-12-14] MEDS: PANTOPRAZOLE 40 MG TABLET (FP) PO SCH (15:03)
[2016-12-14] MEDS: THIAMINE HCL 100 MG TABLET (FP) PO SCH (21:47)
[2016-12-15] MEDS: GABAPENTIN 300 MG CAPSULE (FP) PO SCH ×3 (06:02→21:22)
[2016-12-15] MEDS: NAPROXEN 500 MG TABLET (FP) PO SCH ×2 (09:51→21:22)
[2016-12-15] MEDS: PRENATAL VITAMINS W/ FOLIC ACID TABLET (FP) PO SCH (09:51)
[2016-12-15] MEDS: NICOTINE 14 MG/24 HOURS TOPICAL PATCH TD SCH (09:51)
[2016-12-15] MEDS: MONTELUKAST NA 10 MG TABLET PO SCH (09:51)
[2016-12-15] MEDS: RANITIDINE HCL 150 MG TABLET (FP) PO SCH ×2 (09:51→21:22)
[2016-12-15] MEDS: PANTOPRAZOLE 40 MG TABLET (FP) PO SCH (09:51)
[2016-12-15] MEDS: PHENYTOIN NA EXTENDED 100 MG CAPSULE (FP) PO SCH (09:51)
[2016-12-15] MEDS: CYCLOBENZAPRINE HCL 10 MG TABLET (FP) PO PRN (21:22)
[2016-12-15] MEDS: THIAMINE HCL 100 MG TABLET (FP) PO SCH (21:22)
[2016-12-16] MEDS: GABAPENTIN 300 MG CAPSULE (FP) PO SCH ×3 (06:25→21:12)
[2016-12-16] MEDS: PHENYTOIN NA EXTENDED 100 MG CAPSULE (FP) PO SCH (10:23)
[2016-12-16] MEDS: NICOTINE 14 MG/24 HOURS TOPICAL PATCH TD SCH (10:23)
[2016-12-16] MEDS: RANITIDINE HCL 150 MG TABLET (FP) PO SCH ×2 (10:23→21:12)
[2016-12-16] MEDS: MONTELUKAST NA 10 MG TABLET PO SCH (10:23)
[2016-12-16] MEDS: PRENATAL VITAMINS W/ FOLIC ACID TABLET (FP) PO SCH (10:23)
[2016-12-16] MEDS: NAPROXEN 500 MG TABLET (FP) PO SCH ×2 (10:23→21:12)
[2016-12-16] MEDS: PANTOPRAZOLE 40 MG TABLET (FP) PO SCH (10:53)
[2016-12-16] MEDS: THIAMINE HCL 100 MG TABLET (FP) PO SCH (21:12)
[2016-12-16] MEDS: CYCLOBENZAPRINE HCL 10 MG TABLET (FP) PO PRN (21:12)
[2016-12-17] MEDS: GABAPENTIN 300 MG CAPSULE (FP) PO SCH ×3 (06:15→21:10)
[2016-12-17] MEDS: PHENYTOIN NA EXTENDED 100 MG CAPSULE (FP) PO SCH (09:39)
[2016-12-17] MEDS: NAPROXEN 500 MG TABLET (FP) PO SCH ×2 (09:39→21:10)
[2016-12-17] MEDS: MONTELUKAST NA 10 MG TABLET PO SCH (09:39)
[2016-12-17] MEDS: PRENATAL VITAMINS W/ FOLIC ACID TABLET (FP) PO SCH (09:39)
[2016-12-17] MEDS: RANITIDINE HCL 150 MG TABLET (FP) PO SCH ×2 (09:39→21:11)
[2016-12-17] MEDS: NICOTINE 14 MG/24 HOURS TOPICAL PATCH TD SCH (09:40)
[2016-12-17] MEDS: THIAMINE HCL 100 MG TABLET (FP) PO SCH (21:11)
[2016-12-17] MEDS: CYCLOBENZAPRINE HCL 10 MG TABLET (FP) PO PRN (21:12)
[2016-12-18] MEDS: GABAPENTIN 300 MG CAPSULE (FP) PO SCH ×3 (06:19→21:13)
[2016-12-18] MEDS: NAPROXEN 500 MG TABLET (FP) PO SCH ×2 (09:49→21:13)
[2016-12-18] MEDS: PRENATAL VITAMINS W/ FOLIC ACID TABLET (FP) PO SCH (09:50)
[2016-12-18] MEDS: MONTELUKAST NA 10 MG TABLET PO SCH (09:50)
[2016-12-18] MEDS: RANITIDINE HCL 150 MG TABLET (FP) PO SCH ×2 (09:50→21:13)
[2016-12-18] MEDS: PHENYTOIN NA EXTENDED 100 MG CAPSULE (FP) PO SCH (09:50)
[2016-12-18] MEDS: NICOTINE 14 MG/24 HOURS TOPICAL PATCH TD SCH (09:50)
[2016-12-18] MEDS: THIAMINE HCL 100 MG TABLET (FP) PO SCH (21:13)
[2016-12-18] MEDS: ALBUTEROL SO4 18 GM HFA INHALER IH PRN (21:14)
[2016-12-18] MEDS: CYCLOBENZAPRINE HCL 10 MG TABLET (FP) PO PRN (23:24)
[2016-12-19] MEDS: GABAPENTIN 300 MG CAPSULE (FP) PO SCH ×3 (06:25→21:10)
[2016-12-19] MEDS: NAPROXEN 500 MG TABLET (FP) PO SCH ×2 (09:56→21:10)
[2016-12-19] MEDS: MONTELUKAST NA 10 MG TABLET PO SCH (09:56)
[2016-12-19] MEDS: PHENYTOIN NA EXTENDED 100 MG CAPSULE (FP) PO SCH (09:56)
[2016-12-19] MEDS: RANITIDINE HCL 150 MG TABLET (FP) PO SCH ×2 (09:56→21:10)
[2016-12-19] MEDS: NICOTINE 14 MG/24 HOURS TOPICAL PATCH TD SCH (09:57)
[2016-12-19] MEDS: PRENATAL VITAMINS W/ FOLIC ACID TABLET (FP) PO SCH (09:57)
[2016-12-19] MEDS: ALBUTEROL SO4 18 GM HFA INHALER IH PRN ×2 (09:59→21:10)
[2016-12-19] MEDS: THIAMINE HCL 100 MG TABLET (FP) PO SCH (21:10)
[2016-12-19] MEDS: CYCLOBENZAPRINE HCL 10 MG TABLET (FP) PO PRN (23:34)
[2016-12-20] MEDS: GABAPENTIN 300 MG CAPSULE (FP) PO SCH ×3 (06:27→21:11)
[2016-12-20] MEDS: RANITIDINE HCL 150 MG TABLET (FP) PO SCH ×2 (10:00→21:11)
[2016-12-20] MEDS: NAPROXEN 500 MG TABLET (FP) PO SCH ×2 (10:00→21:11)
[2016-12-20] MEDS: PRENATAL VITAMINS W/ FOLIC ACID TABLET (FP) PO SCH (10:00)
[2016-12-20] MEDS: PHENYTOIN NA EXTENDED 100 MG CAPSULE (FP) PO SCH (10:00)
[2016-12-20] MEDS: NICOTINE 14 MG/24 HOURS TOPICAL PATCH TD SCH (10:02)
[2016-12-20] MEDS: MONTELUKAST NA 10 MG TABLET PO SCH (10:02)
[2016-12-20] MEDS: CYCLOBENZAPRINE HCL 10 MG TABLET (FP) PO PRN ×2 (10:02→21:11)
[2016-12-20] MEDS: ALBUTEROL SO4 18 GM HFA INHALER IH PRN (20:10)
[2016-12-20] MEDS: THIAMINE HCL 100 MG TABLET (FP) PO SCH (21:11)
[2016-12-21] MEDS: GABAPENTIN 300 MG CAPSULE (FP) PO SCH ×3 (06:27→23:38)
[2016-12-21] MEDS: CYCLOBENZAPRINE HCL 10 MG TABLET (FP) PO PRN (06:42)
[2016-12-21] MEDS: PRENATAL VITAMINS W/ FOLIC ACID TABLET (FP) PO SCH (09:56)
[2016-12-21] MEDS: PHENYTOIN NA EXTENDED 100 MG CAPSULE (FP) PO SCH (09:56)
[2016-12-21] MEDS: RANITIDINE HCL 150 MG TABLET (FP) PO SCH ×2 (09:57→23:38)
[2016-12-21] MEDS: MONTELUKAST NA 10 MG TABLET PO SCH (09:57)
[2016-12-21] MEDS: NAPROXEN 500 MG TABLET (FP) PO SCH ×2 (09:57→23:38)
[2016-12-21] MEDS: NICOTINE 14 MG/24 HOURS TOPICAL PATCH TD SCH (09:57)
[2016-12-21] MEDS: ALBUTEROL SO4 18 GM HFA INHALER IH PRN (13:34)
--- NOTE | 2016-12-21 13:37 | PN ---
Psychiatric Progress Note Vital Signs: Vital Signs Period Temp Pulse Resp BP Sys/Lozano Pulse Ox Last 24 Hr 97.8 F 81 18-20 106/72 Date of Session: 12/21/16 Chief Complaint:: Discharge Note HPI: Patient addressing Alcohol Dependence comorbid with Nicotine Dependence, Alcohol-Induced Mood Disorder and Alcohol-Induced Sleep Disorder ROS: Asthma, Hard of hearing, Seizure Disoder Current Medications: Active Medications Generic Name Dose Route Start Last Admin Trade Name Freq PRN Reason Stop Dose Admin Albuterol Sulfate 0 puff 12/12/16 13:31 12/20/16 20:10 Ventolin Hfa Inhaler - IH 1 puff Q4H PRN Administration ASTHMA Cyclobenzaprine HCl 10 mg 12/13/16 10:35 12/21/16 06:42 Flexeril - PO 10 mg TID PRN Administration MUSCLE SPASMS Eucalyptus/Menthol/Phenol/Sorbitol 1 each 12/07/16 15:04 Cepastat Lozenge - MM Q4H PRN SORE THROAT Gabapentin 300 mg 12/14/16 14:00 12/21/16 06:27 Neurontin - PO 300 mg TID TINO Administration Montelukast Sodium 10 mg 12/08/16 10:00 12/21/16 09:57 Singulair - PO 10 mg DAILY TINO Administration Naproxen 500 mg 12/14/16 13:52 12/21/16 09:57 Naprosyn - PO 500 mg BID TINO Administration Nicotine 14 mg 12/08/16 10:00 12/21/16 09:57 Nicoderm Patch - TD 14 mg DAILY TINO Administration Nicotine Polacrilex 2 mg 12/07/16 15:04 Nicorette Gum - BUC Q2H PRN NICOTINE REPLACEMENT RX Phenytoin Sodium 300 mg 12/08/16 10:00 12/21/16 09:56 Dilantin - PO 300 mg DAILY TINO Administration Multivit/Folic Acid/Iron 1 tab 12/08/16 10:00 12/21/16 09:56 Vitamins (Sjr) - PO 1 tab DAILY TINO Administration Pseudoephedrine/Triprolidine 1 combo 12/07/16 15:04 Actifed - PO TID PRN NASAL CONGESTION Ranitidine HCl 150 mg 12/07/16 22:00 12/21/16 09:57 Zantac - PO 150 mg BID TINO Administration Thiamine HCl 100 mg 12/07/16 22:00 12/20/16 21:11 Vitamin B1 - PO 100 mg HS TINO Administration Current Side Effect: No Lab tests ordered: Yes Lab tests reviewed: Yes Provider note:: Patient will complete this program on 12/22/16. She has met her treatment goals and will continue to address her issues in outpatient treatment at the [facility] in [place]. Told assembly instructions writer that from her participation in this program, she has learn the importance of compliance with her outpatient program as well as of attending AA/NA meetings. She is stable for discharge on 12/22/16 Total face to face time:: 35 Mental Status Exam - Mental Status Exam Alert and Oriented to: Time, Place, Person Cognitive Function: Fair Patient Appearance: Well Groomed Mood: Hopeful, Euthymic Affect: Appropriate Patient Behavior: Cooperative Speech Pattern: Clear Voice Loudness: Normal Thought Process: Intact, Goal Oriented Thought Disorder: Not Present Hallucinations: Denies Suicidal Ideation: Denies Homicidal Ideation: Denies Insight/Judgement: Fair Sleep: Fair Appetite: Good Muscle strength/Tone: Normal Gait/Station: Normal Psychiatric Treatment Plan - Problem List (1) Alcohol dependence Current Visit: Yes (2) Nicotine dependence Current Visit: No Qualifiers: Nicotine product type: cigarettes (3) Alcohol-induced mood disorder Current Visit: Yes (4) Alcohol-induced sleep disorder Current Visit: Yes (5) Asthma Current Visit: No Qualifiers: Asthma severity: mild intermittent Asthma complication type: with status asthmaticus (6) Hard of hearing Current Visit: No Qualifiers: Hearing loss type: conductive Laterality: left Contralateral hearing status: unspecified Qualified Code(s): H90.12 - Conductive hearing loss, unilateral, left ear, with unrestricted hearing on the contralateral side; H90.12 - Conductive hearing loss, unilateral, left ear, with unrestricted hearing on the contralateral side (7) Seizure Current Visit: No (8) Absent kidney Current Visit: No Comment: LEFT KIDNEY REMOVED 1971 Initial treatment plan: Patient will be discharged tomorro and referred to the [facility] for outpatient treatment
[2016-12-21] MEDS: THIAMINE HCL 100 MG TABLET (FP) PO SCH (23:38)
[2016-12-22] MEDS: CYCLOBENZAPRINE HCL 10 MG TABLET (FP) PO PRN ×2 (00:46→06:19)
[2016-12-22] MEDS: GABAPENTIN 300 MG CAPSULE (FP) PO SCH (06:19)
[2016-12-22 07:09] VITALS: BP 113/73; PULSE 72; TEMP 98.2
[2016-12-22] MEDS: PHENYTOIN NA EXTENDED 100 MG CAPSULE (FP) PO SCH (09:40)
[2016-12-22] MEDS: NICOTINE 14 MG/24 HOURS TOPICAL PATCH TD SCH (09:41)
[2016-12-22] MEDS: NAPROXEN 500 MG TABLET (FP) PO SCH (09:41)
[2016-12-22] MEDS: PRENATAL VITAMINS W/ FOLIC ACID TABLET (FP) PO SCH (09:41)
[2016-12-22] MEDS: RANITIDINE HCL 150 MG TABLET (FP) PO SCH (09:41)
[2016-12-22] MEDS: MONTELUKAST NA 10 MG TABLET PO SCH (09:41)
== END 2016-12-22 10:25 | disposition home or self-care (01) | DRG 772 ==
LOC: YASAS 12:56 → Y3W 12:57
PROVIDERS: ADMIT Psychiatry & Neurology Psychiatry; ATTEND Psychiatry & Neurology Psychiatry
PROC: HZ42ZZZ Group Counseling for Substance Abuse Treatment, Cognitive-Behavioral (ICD-10-PCS; principal; 2016-12-07)
DX: F10.220 Alcohol dependence with intoxication, uncomplicated (principal); F17.210 Nicotine dependence, cigarettes, uncomplicated; F10.24 Alcohol dependence with alcohol-induced mood disorder; F10.282 Alcohol dependence with alcohol-induced sleep disorder; J45.20 Mild intermittent asthma, uncomplicated; H90.12 Conductive hearing loss, unilateral, left ear, with unrestricted hearing on the contralateral side; Z86.69 Personal history of other diseases of the nervous system and sense organs; Z90.5 Acquired absence of kidney
CPT/HCPCS: 36415; 80053; 80185; 82140; 82150; 83690; 85025

== ENCOUNTER 2018-12-21 11:05 | Emergency (ER) | payer OTHER ==
[2018-12-21 11:28] VITALS: BP 137/96; PULSE 83; TEMP 98; BMI 19.5
[2018-12-21] MEDS ORDERED: LIDOCAINE 5% TOPICAL PATCH TP ONE (12:53)
[2018-12-21] MEDS ORDERED: ACETAMINOPHEN 500 MG TABLET (FP) PO ONE (12:53)
[2018-12-21] MEDS ORDERED: ACETAMINOPHEN 325 MG TABLET (FP) ONE (12:58)
[2018-12-21] MEDS ORDERED: LIDOCAINE 5% TOPICAL PATCH ONE (12:58)
--- NOTE | 2018-12-21 13:18 | PDOC ---
Documentation entered by Aurora Horne SCRIBE, acting as scribe for Niraj Serna MD. Niraj Serna MD: This documentation has been prepared by the Ozzie limon Sammi, SCRIBE, under my direction and personally reviewed by me in its entirety. I confirm that the documentation accurately reflects all work, treatment, procedures, and medical decision making performed by me. History of Present Illness - General Chief Complaint: Chronic pain Stated Complaint: JOINT PAIN Time Seen by Provider: 12/21/18 12:46 - History of Present Illness Initial Comments: 12/21/18 12:59 The patient is a 63 year old female who presents for evaluation of 5 years of chronic bilateral upper extremity pain and full body arthritis. Patient states she has not informed her PCP of this as of yet. 12/21/18 13:27 Prior to her evaluation, patient uses profanity with every member of the staff including registration, nursing and the MD. Patient has walked out of her room on several occasions threatening to elope. Past History - Past Medical History Allergies/Adverse Reactions: Allergies Allergy/AdvReac Type Severity Reaction Status Date / Time Penicillins Allergy Severe Swelling Verified 12/03/16 16:48 Home Medications: Ambulatory Orders Divalproex [Depakote -] 500 mg PO DAILY 12/03/16 Fluoxetine HCl [Prozac -] 20 mg PO DAILY 12/03/16 Gabapentin [Neurontin -] 600 mg PO HS 12/03/16 Naproxen [Naprosyn -] 500 mg PO BID PRN 12/03/16 Omeprazole 20 mg PO DAILY 12/03/16 Albuterol Sulfate Inhaler - [Ventolin HFA Inhaler -] 2 puff PO PRN #1 inh Montelukast Sodium [Singulair] 10 mg PO DAILY #30 tab 12/21/16 Naproxen [Naprosyn -] 500 mg PO BID PRN #20 tablet 12/21/16 Phenytoin Na Extended [Dilantin -] 300 mg PO DAILY #90 cap 12/21/16 Ranitidine [Zantac -] 150 mg PO BID #60 tab 12/21/16 Ergocalciferol [Vitamin D2] 50,000 unit PO WEEKLY 12/21/18 Lidocaine 5% Patch [Lidoderm -] 1 patch TP DAILY #30 patch 12/21/18 Anemia: No Asthma: Yes Cancer: No Cardiac Disorders: No CVA: No COPD: No CHF: No Dementia: No Diabetes: No GI Disorders: No Disorders: No HTN: No Hypercholesterolemia: No Kidney Stones: No Liver Disease: No Seizures: Yes (Last two weeks ago) Thyroid Disease: No - Surgical History Abdominal Surgery: No Appendectomy: No Cardiac Surgery: No Cholecystectomy: No Lung Surgery: No Neurologic Surgery: No Orthopedic Surgery: Yes (LEG FX) - Reproductive History PID: No - Immunization History Immunization Up to Date: Yes - Psycho Social/Smoking Cessation Hx Smoking History: Current every day smoker Have you smoked in the past 12 months: Yes Number of Cigarettes Smoked Daily: 20 Cigars Per Day: 0 Information on smoking cessation initiated: No 'Breaking Loose' booklet given: 12/03/16 Hx Alcohol Use: Yes Drug/Substance Use Hx: No Substance Use Type: Alcohol (Started drinking alcohol at age 18, consumes a 6pk daily. Last drink on 12/03/16) Hx Substance Use Treatment: Yes (2 previous inpt detox) Review of Systems - Review of Systems Comments:: 12/21/18 12:59 CONSTITUTIONAL: No fever, no chills, no fatigue CARDIOVASCULAR: No chest pain, no palpitations RESPIRATORY: No cough, no SOB MUSKULOSKELETAL: +bilateral upper extremity pain +arthritis SKIN: No rash NEURO: No headache *Physical Exam - Vital Signs Last Vital Signs Temp Pulse Resp BP Pulse Ox 98 F 83 18 137/96 95 12/21/18 11:22 12/21/18 11:22 12/21/18 11:22 12/21/18 11:22 12/21/18 11:29 - Physical Exam Comments: 12/21/18 13:28 EXAMINATION CONSTITUTIONAL: Awake, alert, frail appearing, in mild distress HEAD: Normocephalic; atraumatic EYES: EOM intact, conj-pink ENMT: External appears normal; mmm NECK: Supple; non-tender; FROM CARD: Normal S1, S2; 2/6 se murmurs, no rubs, or gallops RESP: Normal chest excursion with respiration; breath sounds clear and equal bilaterally; no wheezes, rhonchi, or rales ABD: Soft, non-distended; non-tender; no palpable organomegaly, no palpable hernias EXT: Normal ROM in all four extremities; b/l shoulder joint tender to palpatioN WITH PAIN ON RANGE OF THE movt; distal pulses intact SKIN: Warm, dry, no rash NEURO:aox3, moving all extr symmetrically, ambulates with assistance of a walker. ED Treatment Course - Medications Given in the ED: ED Medications Discontinued Medications Generic Name Dose Route Start Last Admin Trade Name Lauren PRN Reason Stop Dose Admin Acetaminophen 1,000 mg 12/21/18 12:53 12/21/18 13:00 Tylenol - PO 12/21/18 12:54 1,000 mg ONCE ONE Administration Lidocaine 1 patch 12/21/18 12:53 12/21/18 13:00 Lidoderm Patch - TP 12/21/18 12:54 1 patch ONCE ONE Administration Medical Decision Making - Medical Decision Making Patient 63-year-old female with multiple comorbidities, history of chronic osteoarthritis, history of chronic shoulder and neck pain presents with recurrent pain for which she has not taken any medications previously. In the ER, as noted previously, patient using profanity with ED staff and initially uncooperative. Physical evaluation does not reveal any focal deficits. I do not suspect acute cord compression at this time. Will administer acetaminophen and Lidoderm patch. Will discharge with Lidoderm patch with PMD follow-up. Discharge - Discharge Information Problems reviewed: Yes Clinical Impression/Diagnosis: Neck pain Shoulder pain Qualifiers: Chronicity: chronic Laterality: bilateral Qualified Code(s): M25.511 - Pain in right shoulder Condition: Stable Disposition: HOME - Admission No - Additional Discharge Information Prescriptions: Lidocaine 5% Patch [Lidoderm -] 1 patch TP DAILY #30 patch - Follow up/Referral Referrals: Jamison Fabian MD [Staff Physician] - - Patient Discharge Instructions Patient Printed Discharge Instructions: DI for Shoulder Pain, DI for Chronic Neck Pain - Post Discharge Activity
[2018-12-21] MEDS ORDERED: LIDOCAINE PATCH REMOVAL MC SCH (22:00)
== END 2018-12-21 13:37 | disposition home or self-care (01) ==
LOC: JER 11:05
DX: M25.511 Pain in right shoulder (principal); M19.90 Unspecified osteoarthritis, unspecified site; G89.29 Other chronic pain; M54.2 Cervicalgia; J45.909 Unspecified asthma, uncomplicated; R56.9 Unspecified convulsions; F17.210 Nicotine dependence, cigarettes, uncomplicated
CPT/HCPCS: 99283-25

== ENCOUNTER 2020-08-02 15:44 | Emergency (ER) | payer OTHER ==
[2020-08-02 16:35] VITALS: BP 135/89; PULSE 86; TEMP 98; BMI 24.4
[2020-08-02] MEDS ORDERED: ACETAMINOPHEN 1000 MG/100 ML VIAL (NON FORMULARY) IVPB ONE (17:03)
[2020-08-02] MEDS ORDERED: SODIUM CHLORIDE 0.9% 500 ML INFUS.BAG IV ONE (17:03)
[2020-08-02] MEDS ORDERED: ONDANSETRON 4 MG/2 ML VIAL IVPUSH ONE (17:03)
[2020-08-02] MEDS ORDERED: FAMOTIDINE 20 MG/50 ML IVPB 20 MG/50 ML MG IVPB ONE ×2 (17:20→17:44)
[2020-08-02] MEDS ORDERED: ONDANSETRON 4 MG/2 ML VIAL ONE (17:44)
[2020-08-02] MEDS ORDERED: ACETAMINOPHEN INJECTION 100 ML IVPB ONE (17:44)
[2020-08-02] MEDS ORDERED: ONDANSETRON *ODT* 4 MG TABLET SL ONE (17:59)
[2020-08-02] MEDS ORDERED: ACETAMINOPHEN 500 MG TABLET (FP) PO ONE (17:59)
[2020-08-02] MEDS ORDERED: MAG HYDROX/AL HYDROX/SIMETH 30 ML UNIT-DOSE CUP PO ONE (18:00)
[2020-08-02] MEDS ORDERED: FAMOTIDINE 10 MG TABLET PO ONE (18:00)
[2020-08-02] MEDS ORDERED: ONDANSETRON *ODT* 4 MG TABLET ONE (18:07)
[2020-08-02] MEDS ORDERED: FAMOTIDINE 20 MG TABLET ONE (18:07)
[2020-08-02] MEDS ORDERED: ACETAMINOPHEN 325 MG TABLET (FP) ONE (18:07)
[2020-08-02 18:16] LABS: BASO % 1.3 % (0-2.0); EOS % 1.3 % (0-4.5); HEMATOCRIT 47.2 % (32.4-45.2); HEMOGLOBIN 16.1 GM/dL (10.7-15.3); LYMPH % 37.9 % (8-40); MCH 30.5 pg (25.7-33.7); MCHC 34.1 g/dl (32.0-36.0); MEAN CELL VOLUME 89.3 fl (80-96); MEAN PLT VOLUME 8.9 fl (7.5-11.1); MONO % 10.8 % (3.8-10.2); NEUT % 48.7 % (42.8-82.8); PLATELET COUNT 159 K/MM3 (134-434); RBC 5.29 M/mm3 (3.60-5.2); WHITE BLOOD COUNT 4.3 K/mm3 (4.0-10.0)
[2020-08-02 18:39] LABS: CHLORIDE 98 mmol/L (98-107); SODIUM 133 mmol/L (136-145)
[2020-08-02 18:42] LABS: ALBUMIN 3.5 g/dl (3.4-5.0); ANION GAP 9 MMOL/L (8-16); BLOOD UREA NITROGEN 8.7 mg/dL (7-18); CALCIUM 9.4 mg/dL (8.5-10.1); CO2 25 mmol/L (21-32); GLUCOSE,RANDOM 128 mg/dL (74-106); LIPASE 70 U/L (73-393)
[2020-08-02 18:45] LABS: CREATININE 0.5 mg/dL (0.55-1.3); SGOT/AST 70 U/L (15-37); SGPT/ALT 44 U/L (13-61)
[2020-08-02 18:47] LABS: TOT PROT 7.8 g/dl (6.4-8.2)
[2020-08-02 18:48] LABS: ALK PHOS 126 U/L (45-117)
== END 2020-08-02 18:45 | disposition left against medical advice (07) ==
LOC: JER 15:44
DX: R11.2 Nausea with vomiting, unspecified (principal); R19.7 Diarrhea, unspecified; R10.13 Epigastric pain
CPT/HCPCS: 36415; 71046-TC-FY; 80053; 83690; 84484; 85025; 93005; 93010; 99285-25; Q0162

== ENCOUNTER 2020-08-30 11:44 | Emergency (ER) | payer OTHER ==
[2020-08-30] MEDS ORDERED: SODIUM CHLORIDE 1,000 ML IV STA (12:15)
[2020-08-30] MEDS ORDERED: ACETAMINOPHEN 1000 MG/100 ML VIAL (NON FORMULARY) IVPB ONE (12:15)
[2020-08-30] MEDS ORDERED: ONDANSETRON 4 MG/2 ML VIAL IVPUSH ONE (12:15)
[2020-08-30 12:25] VITALS: BMI 22.3
[2020-08-30] MEDS ORDERED: ONDANSETRON 4 MG/2 ML VIAL ONE (14:00)
[2020-08-30] MEDS ORDERED: ACETAMINOPHEN INJECTION 100 ML IVPB ONE (14:00)
[2020-08-30 14:38] LABS: BASO % 0.9 % (0-2.0); EOS % 0.6 % (0-4.5); HEMATOCRIT 47.1 % (32.4-45.2); HEMOGLOBIN 15.8 GM/dL (10.7-15.3); LYMPH % 39.4 % (8-40); MCH 30.1 pg (25.7-33.7); MCHC 33.6 g/dl (32.0-36.0); MEAN CELL VOLUME 89.7 fl (80-96); MEAN PLT VOLUME 9.3 fl (7.5-11.1); MONO % 18.9 % (3.8-10.2); NEUT % 40.2 % (42.8-82.8); PLATELET COUNT 139 K/MM3 (134-434); RBC 5.25 M/mm3 (3.60-5.2); RDW 14.2 % (11.6-15.6)
[2020-08-30 14:49] LABS: CHLORIDE 98 mmol/L (98-107); SODIUM 135 mmol/L (136-145)
[2020-08-30 14:51] LABS: CALCIUM 10.3 mg/dL (8.5-10.1)
[2020-08-30 14:52] LABS: ALBUMIN 3.9 g/dl (3.4-5.0); ANION GAP 9 MMOL/L (8-16); BLOOD UREA NITROGEN 11.2 mg/dL (7-18); CO2 29 mmol/L (21-32); GLUCOSE,RANDOM 90 mg/dL (74-106); LIPASE 65 U/L (73-393); MAGNESIUM 1.7 mg/dL (1.8-2.4)
[2020-08-30 14:55] LABS: CREATININE 0.6 mg/dL (0.55-1.3); SGOT/AST 137 U/L (15-37); SGPT/ALT 62 U/L (13-61)
[2020-08-30 14:56] LABS: BILIRUBIN,TOTAL 1.7 mg/dL (0.2-1); TOT PROT 7.9 g/dl (6.4-8.2)
[2020-08-30 14:57] LABS: ALK PHOS 107 U/L (45-117)
[2020-08-30 17:27] VITALS: TEMP 97.9
[2020-08-30] MEDS ORDERED: SODIUM CHLORIDE 0.9% 500 ML INFUS.BAG IV ONE (17:45)
[2020-08-30 18:58] VITALS: BP 146/105; PULSE 96
== END 2020-08-30 19:01 | disposition left against medical advice (07) ==
LOC: JER 11:44
PROC: 3E033NZ Introduction of Analgesics, Hypnotics, Sedatives into Peripheral Vein, Percutaneous Approach (ICD-10-PCS; principal; 2020-08-30)
PROC: 3E033GC Introduction of Other Therapeutic Substance into Peripheral Vein, Percutaneous Approach (ICD-10-PCS; 2020-08-30)
PROC: 3E0337Z Introduction of Electrolytic and Water Balance Substance into Peripheral Vein, Percutaneous Approach (ICD-10-PCS; 2020-08-30)
DX: R10.84 Generalized abdominal pain (principal)
CPT/HCPCS: 36415; 80053; 82272; 82550; 83690; 83735; 84484; 85025; 86850; 86900; 86901; 93005; 93010; 96361; 96374; 96375; 99285-25; J0131

== ENCOUNTER 2020-09-03 13:30 | Emergency (ER) | payer OTHER ==
[2020-09-03 13:56] VITALS: BP 109/73; PULSE 88; TEMP 99.1; BMI 23.0
[2020-09-03 15:08] LABS: BASO % 0.8 % (0-2.0); EOS % 0.9 % (0-4.5); HEMATOCRIT 41.7 % (32.4-45.2); HEMOGLOBIN 14.2 GM/dL (10.7-15.3); LYMPH % 26.7 % (8-40); MCH 30.3 pg (25.7-33.7); MEAN CELL VOLUME 89.3 fl (80-96); MEAN PLT VOLUME 8.5 fl (7.5-11.1); MONO % 20.7 % (3.8-10.2); NEUT % 50.9 % (42.8-82.8); PLATELET COUNT 125 10^3/uL (134-434); RBC 4.67 M/mm3 (3.60-5.2); RDW 13.9 % (11.6-15.6); WHITE BLOOD COUNT 3.7 K/mm3 (4.0-10.0)
[2020-09-03 15:32] LABS: CHLORIDE 104 mmol/L (98-107); SODIUM 141 mmol/L (136-145)
[2020-09-03 15:35] LABS: CALCIUM 9.1 mg/dL (8.5-10.1)
[2020-09-03 15:36] LABS: ALBUMIN 3.2 g/dl (3.4-5.0); ANION GAP 8 MMOL/L (8-16); CO2 29 mmol/L (21-32); GLUCOSE,RANDOM 86 mg/dL (74-106); LIPASE 72 U/L (73-393); MAGNESIUM 1.8 mg/dL (1.8-2.4)
[2020-09-03 15:37] LABS: PHOSPHOROUS 4.1 mg/dL (2.5-4.9)
[2020-09-03 15:39] LABS: CREATININE 0.4 mg/dL (0.55-1.3); SGOT/AST 75 U/L (15-37); SGPT/ALT 38 U/L (13-61)
[2020-09-03 15:40] LABS: BILIRUBIN,TOTAL 0.7 mg/dL (0.2-1)
[2020-09-03 15:41] LABS: ALK PHOS 79 U/L (45-117); ANISOCYTOSIS 0; HELMET CELLS 0; HOWELL-JOLLY BODIES 0; MACROCYTOSIS 0; OVALOCYTE 0; PLATELET ESTIMATE DECREASED; ROULEAU 0; SICKELED CELLS 0; TARGET CELLS 0; TEAR DROP CELLS 0; TOXIC GRANULATION 0
[2020-09-03 15:46] LABS: BLOOD UREA NITROGEN 2.7 mg/dL (7-18)
[2020-09-03] MEDS ORDERED: ONDANSETRON 4 MG/2 ML VIAL IVPUSH PRN (19:44)
[2020-09-03] MEDS ORDERED: LACTATED RINGERS SOLUTION 1000 ML INFUS.BAG IV ONE (20:12)
== END 2020-09-03 22:14 | disposition home or self-care (01) ==
LOC: JER 13:30
PROC: 3E033GC Introduction of Other Therapeutic Substance into Peripheral Vein, Percutaneous Approach (ICD-10-PCS; principal; 2020-09-03)
DX: R19.7 Diarrhea, unspecified (principal)
CPT/HCPCS: 36415; 74177-TC; 80053; 82550; 83690; 83735; 84100; 84439; 84443; 84484; 85025; 93005; 93010; 99285-25; Q9967

== ENCOUNTER 2020-09-18 14:43 | Inpatient (IN) | payer OTHER ==
[2020-09-18 18:11] VITALS: BMI 23.0
[2020-09-18] MEDS ORDERED: NICOTINE POLACRILEX 2 MG GUM BUC PRN (20:00)
[2020-09-18] MEDS ORDERED: MAGNESIUM CITRATE 300 ML BOTTLE PO PRN (20:00)
[2020-09-18] MEDS ORDERED: ACETAMINOPHEN 325 MG TABLET (FP) PO PRN ×2 (20:00)
[2020-09-18] MEDS ORDERED: guaiFENesin 200 MG/10 ML 10 ML UNIT-DOSE CUPS PO PRN (20:00)
[2020-09-18] MEDS ORDERED: MAG HYDROX/AL HYDROX/SIMETH 30 ML UNIT-DOSE CUP PO PRN (20:00)
[2020-09-18] MEDS ORDERED: MAGNESIUM HYDROX 2400MG/30ML ORAL SUSPENSION 30 ML CUP PO PRN (20:00)
[2020-09-18] MEDS ORDERED: hydrOXYzine PAMOATE 25 MG CAPSULE (FP) PO PRN (20:00)
[2020-09-18] MEDS ORDERED: DICYCLOMINE HCL 10 MG CAPSULE PO PRN (20:00)
[2020-09-18] MEDS ORDERED: IBUPROFEN 400 MG TABLET (FP) PO PRN (20:00)
[2020-09-18] MEDS ORDERED: P-EPHED 60MG/TRIPROLIDI 2.5MG TABLET PO PRN (20:00)
[2020-09-18] MEDS ORDERED: MENTHOL/PHENOL 1 EACH UD MM PRN (20:00)
[2020-09-18] MEDS: THIAMINE HCL 100 MG TABLET (FP) PO SCH (21:03)
[2020-09-18] MEDS: MELATONIN 5 MG TABLETS PO SCH (21:03)
[2020-09-19] MEDS: PRENATAL VITAMINS W/ FOLIC ACID TABLET (FP) PO SCH (10:27)
[2020-09-19] MEDS: NICOTINE 14 MG/24 HOURS TOPICAL PATCH TD SCH (10:27)
[2020-09-19 10:49] LABS: HEMOGLOBIN 13.7 GM/dL (10.7-15.3); MCH 29.8 pg (25.7-33.7); MCHC 32.7 g/dl (32.0-36.0); MEAN PLT VOLUME 8.3 fl (7.5-11.1); PLATELET COUNT 153 10^3/uL (134-434); RBC 4.61 M/mm3 (3.60-5.2); RDW 14.8 % (11.6-15.6); WHITE BLOOD COUNT 2.5 K/mm3 (4.0-10.0)
[2020-09-19 10:55] LABS: ALBUMIN 3.2 g/dl (3.4-5.0); CALCIUM 8.8 mg/dL (8.5-10.1)
[2020-09-19 10:58] LABS: CREATININE 0.4 mg/dL (0.55-1.3)
[2020-09-19 11:00] LABS: BILIRUBIN,TOTAL 1.2 mg/dL (0.2-1); TOT PROT 6.8 g/dl (6.4-8.2)
[2020-09-19] MEDS: BISMUTH SUBSALICYLATE 524 MG/30 ML PO PRN ×2 (12:51→17:46)
[2020-09-19] MEDS ORDERED: LORazepam 1 MG TABLET PO PRN (13:46)
[2020-09-19] MEDS: LORazepam 1 MG TABLET PO SCH ×2 (17:45→22:48)
[2020-09-19] MEDS: THIAMINE HCL 100 MG TABLET (FP) PO SCH (22:48)
[2020-09-19] MEDS: MELATONIN 5 MG TABLETS PO SCH (22:49)
[2020-09-20] MEDS: LORazepam 1 MG TABLET PO SCH ×4 (06:47→22:05)
[2020-09-20] MEDS: PRENATAL VITAMINS W/ FOLIC ACID TABLET (FP) PO SCH (10:34)
[2020-09-20] MEDS: METHOCARBAMOL 500 MG TABLET PO PRN ×2 (10:35→22:07)
[2020-09-20] MEDS: BISMUTH SUBSALICYLATE 524 MG/30 ML PO PRN (10:38)
[2020-09-20] MEDS: NICOTINE 14 MG/24 HOURS TOPICAL PATCH TD SCH (10:39)
[2020-09-20] MEDS: DOXYCYCLINE HYCLATE 100 MG TABLET PO SCH (17:26)
[2020-09-20] MEDS: THIAMINE HCL 100 MG TABLET (FP) PO SCH (22:04)
[2020-09-20] MEDS: MELATONIN 5 MG TABLETS PO SCH (22:05)
[2020-09-20] MEDS: hydrOXYzine PAMOATE 25 MG CAPSULE (FP) PO PRN (22:07)
[2020-09-21] MEDS: LORazepam 1 MG TABLET PO SCH ×4 (06:04→22:02)
[2020-09-21] MEDS: DOXYCYCLINE HYCLATE 100 MG TABLET PO SCH ×2 (06:04→18:07)
[2020-09-21] MEDS: PRENATAL VITAMINS W/ FOLIC ACID TABLET (FP) PO SCH (10:00)
[2020-09-21] MEDS: NICOTINE 14 MG/24 HOURS TOPICAL PATCH TD SCH (10:00)
[2020-09-21] MEDS: METHOCARBAMOL 500 MG TABLET PO PRN (10:01)
[2020-09-21] MEDS: ONDANSETRON *ODT* 4 MG TABLET SL PRN (10:35)
[2020-09-21] MEDS: THIAMINE HCL 100 MG TABLET (FP) PO SCH (22:01)
[2020-09-21] MEDS: MELATONIN 5 MG TABLETS PO SCH (22:01)
[2020-09-22] MEDS ORDERED: LORazepam 0.5 MG TABLET PO PRN
[2020-09-22] MEDS: hydrOXYzine PAMOATE 25 MG CAPSULE (FP) PO PRN (06:27)
[2020-09-22] MEDS: LORazepam 0.5 MG TABLET PO SCH ×4 (06:27→22:04)
[2020-09-22] MEDS: DOXYCYCLINE HYCLATE 100 MG TABLET PO SCH ×2 (06:28→17:50)
[2020-09-22] MEDS: PRENATAL VITAMINS W/ FOLIC ACID TABLET (FP) PO SCH (10:29)
[2020-09-22] MEDS: NICOTINE 14 MG/24 HOURS TOPICAL PATCH TD SCH (10:29)
[2020-09-22] MEDS: THIAMINE HCL 100 MG TABLET (FP) PO SCH (22:03)
[2020-09-22] MEDS: MELATONIN 5 MG TABLETS PO SCH (22:03)
[2020-09-23] MEDS ORDERED: LORazepam 0.5 MG TABLET PO ONE (05:00)
[2020-09-23] MEDS: DOXYCYCLINE HYCLATE 100 MG TABLET PO SCH (06:07)
[2020-09-23] MEDS: ONDANSETRON *ODT* 4 MG TABLET SL PRN (07:05)
[2020-09-23 09:06] VITALS: BP 132/83; PULSE 79; TEMP 98.3
[2020-09-23] MEDS: PRENATAL VITAMINS W/ FOLIC ACID TABLET (FP) PO SCH (10:38)
[2020-09-23] MEDS: NICOTINE 14 MG/24 HOURS TOPICAL PATCH TD SCH (10:38)
== END 2020-09-23 09:50 | disposition home or self-care (01) | DRG 897 ==
LOC: YASAS 14:43 → Y3N 18:50 → UNDOADMIN 18:50
PROVIDERS: ADMIT Allergy & Immunology; ATTEND Allergy & Immunology
PROC: HZ2ZZZZ Detoxification Services for Substance Abuse Treatment (ICD-10-PCS; principal; 2020-09-18)
DX: F10.230 Alcohol dependence with withdrawal, uncomplicated (principal); F10.280 Alcohol dependence with alcohol-induced anxiety disorder; F10.282 Alcohol dependence with alcohol-induced sleep disorder; F17.210 Nicotine dependence, cigarettes, uncomplicated; F19.24 Other psychoactive substance dependence with psychoactive substance-induced mood disorder; G40.909 Epilepsy, unspecified, not intractable, without status epilepticus; J45.20 Mild intermittent asthma, uncomplicated; M25.511 Pain in right shoulder; M25.512 Pain in left shoulder; M54.2 Cervicalgia; R10.84 Generalized abdominal pain; G89.29 Other chronic pain; A53.9 Syphilis, unspecified; D72.819 Decreased white blood cell count, unspecified; Z88.0 Allergy status to penicillin; Z90.5 Acquired absence of kidney
CPT/HCPCS: 36415; 80053; 85027; 86593; 86780; 93005; 93010; C9803; Q0162; U0003; U0005

== ENCOUNTER 2021-05-03 18:59 | Inpatient (IN) | payer OTHER ==
[2021-05-03] MEDS ORDERED: morphine CARPU-JECT 2 MG/1 ML DISP.SYRIN IM ONE (20:17)
[2021-05-03] MEDS ORDERED: CLINDAMYCIN 600MG PREMIX IVPB 600 MG/50 ML BAG IVPB ONE (22:33)
[2021-05-03 22:49] LABS: HEMATOCRIT 39.1 % (32.4-45.2); HEMOGLOBIN 13.2 GM/dL (10.7-15.3); MCH 29.8 pg (25.7-33.7); MCHC 33.9 g/dl (32.0-36.0); MEAN CELL VOLUME 87.9 fl (80-96); MEAN PLT VOLUME 7.9 fl (7.5-11.1); PLATELET COUNT 224 10^3/uL (134-434); RBC 4.44 M/mm3 (3.60-5.2); RDW 13.6 % (11.6-15.6); WHITE BLOOD COUNT 4.9 K/mm3 (4.0-10.0)
[2021-05-03 23:11] LABS: BLOOD UREA NITROGEN 5.5 mg/dL (7-18)
[2021-05-03 23:12] LABS: ALBUMIN 3.5 g/dl (3.4-5.0)
[2021-05-03 23:15] LABS: CREATININE 0.5 mg/dL (0.55-1.3)
[2021-05-03 23:16] LABS: BILIRUBIN,TOTAL 0.6 mg/dL (0.2-1); TOT PROT 7.8 g/dl (6.4-8.2)
[2021-05-04 04:42] VITALS: BMI 26.6
[2021-05-04] MEDS ORDERED: LORazepam 1 MG TABLET PO PRN (06:49)
[2021-05-04] MEDS ORDERED: CLINDAMYCIN 600MG PREMIX IVPB 600 MG/50 ML BAG IVPB SCH (07:00)
[2021-05-04] MEDS ORDERED: ALBUTEROL SO4 HFA INHALER IH PRN (07:15)
[2021-05-04] MEDS: ACETAMINOPHEN 1000 MG/100 ML BAG IVPB PRN ×3 (07:50→21:39)
[2021-05-04] MEDS: ENOXAPARIN NA (PORCINE) 40 MG/0.4 ML DISP.SYRIN SQ SCH ×2 (10:22→10:50)
[2021-05-04] MEDS: FOLIC ACID 1 MG TABLET (FP) PO SCH (10:49)
[2021-05-04] MEDS: THIAMINE HCL 100 MG TABLET (FP) PO SCH ×2 (10:49→21:38)
[2021-05-04] MEDS: NICOTINE 7 MG/24 HOURS TOPICAL PATCH TD SCH (10:50)
[2021-05-04] MEDS ORDERED: IBUPROFEN 200 MG TABLET PO ONE (22:40)
[2021-05-05] MEDS: THIAMINE HCL 100 MG TABLET (FP) PO SCH ×2 (10:21→21:11)
[2021-05-05] MEDS: FOLIC ACID 1 MG TABLET (FP) PO SCH (10:21)
[2021-05-05] MEDS: ENOXAPARIN NA (PORCINE) 40 MG/0.4 ML DISP.SYRIN SQ SCH (10:21)
[2021-05-05] MEDS: NICOTINE 7 MG/24 HOURS TOPICAL PATCH TD SCH (10:22)
[2021-05-05] MEDS ORDERED: morphine CARPU-JECT 2 MG/1 ML DISP.SYRIN IVPUSH PRN (10:33)
[2021-05-05] MEDS ORDERED: ACETAMINOPHEN 1000 MG/100 ML BAG IVPB PRN (10:34)
[2021-05-05] MEDS: DIVALPROEX NA *ER* EXTEND REL 500 MG TABLET.SA (FP) PO SCH (12:49)
[2021-05-05] MEDS: FLUoxetine HCL 20 MG CAPSULE PO SCH (12:49)
[2021-05-05] MEDS: ARTIFICIAL TEARS (POLYVINYL ALCOHOL) OPTH DROPS OU SCH ×2 (12:50→21:10)
[2021-05-05] MEDS: GABAPENTIN 300 MG CAPSULE PO SCH ×2 (13:19→21:11)
[2021-05-05] MEDS ORDERED: morphine SULFATE 4 MG/ML VIAL IVPUSH PRN (14:52)
[2021-05-05] MEDS: oxyCODONE HCL 5 MG TABLET PO PRN (19:41)
[2021-05-06] MEDS ORDERED: LORazepam 0.5 MG TABLET PO PRN
[2021-05-06] MEDS: GABAPENTIN 300 MG CAPSULE PO SCH ×3 (05:56→21:52)
[2021-05-06] MEDS: oxyCODONE HCL 5 MG TABLET PO PRN ×5 (06:02→19:12)
[2021-05-06 09:02] LABS: HEMOGLOBIN 12.3 GM/dL (10.7-15.3); MCH 29.4 pg (25.7-33.7); MCHC 32.4 g/dl (32.0-36.0); MEAN CELL VOLUME 90.8 fl (80-96); MEAN PLT VOLUME 8.3 fl (7.5-11.1); PLATELET COUNT 243 10^3/uL (134-434); RBC 4.18 M/mm3 (3.60-5.2); RDW 13.6 % (11.6-15.6); WHITE BLOOD COUNT 3.8 K/mm3 (4.0-10.0)
[2021-05-06 10:06] LABS: BLOOD UREA NITROGEN 7.4 mg/dL (7-18); CALCIUM 8.9 mg/dL (8.5-10.1); CREATININE 0.5 mg/dL (0.55-1.3); PHOSPHOROUS 4.1 mg/dL (2.5-4.9)
[2021-05-06] MEDS: NICOTINE 7 MG/24 HOURS TOPICAL PATCH TD SCH (11:11)
[2021-05-06] MEDS: ARTIFICIAL TEARS (POLYVINYL ALCOHOL) OPTH DROPS OU SCH ×2 (11:11→21:53)
[2021-05-06] MEDS: ENOXAPARIN NA (PORCINE) 40 MG/0.4 ML DISP.SYRIN SQ SCH (11:11)
[2021-05-06] MEDS: DIVALPROEX NA *ER* EXTEND REL 500 MG TABLET.SA (FP) PO SCH (11:12)
[2021-05-06] MEDS: THIAMINE HCL 100 MG TABLET (FP) PO SCH ×2 (11:12→21:52)
[2021-05-06] MEDS: FLUoxetine HCL 20 MG CAPSULE PO SCH (11:12)
[2021-05-06] MEDS: FOLIC ACID 1 MG TABLET (FP) PO SCH (11:12)
[2021-05-06] MEDS: INDOMETHACIN 50 MG CAPSULE PO SCH ×2 (19:13→21:52)
[2021-05-06 20:29] LABS: URIC ACID 4.6 mg/dL (2.6-7.2)
[2021-05-07] MEDS: GABAPENTIN 300 MG CAPSULE PO SCH ×3 (06:35→22:08)
[2021-05-07] MEDS: INDOMETHACIN 50 MG CAPSULE PO SCH ×3 (06:36→22:08)
[2021-05-07] MEDS: oxyCODONE HCL 5 MG TABLET PO PRN ×3 (07:48→22:09)
[2021-05-07] MEDS: ARTIFICIAL TEARS (POLYVINYL ALCOHOL) OPTH DROPS OU SCH ×2 (09:57→22:06)
[2021-05-07] MEDS: DIVALPROEX NA *ER* EXTEND REL 500 MG TABLET.SA (FP) PO SCH (09:58)
[2021-05-07] MEDS: ENOXAPARIN NA (PORCINE) 40 MG/0.4 ML DISP.SYRIN SQ SCH ×2 (09:58)
[2021-05-07] MEDS: THIAMINE HCL 100 MG TABLET (FP) PO SCH ×2 (09:59→22:08)
[2021-05-07] MEDS: FOLIC ACID 1 MG TABLET (FP) PO SCH (09:59)
[2021-05-07] MEDS: NICOTINE 7 MG/24 HOURS TOPICAL PATCH TD SCH (09:59)
[2021-05-07] MEDS: FLUoxetine HCL 20 MG CAPSULE PO SCH (10:00)
[2021-05-07 10:48] LABS: HEMATOCRIT 37.3 % (32.4-45.2); HEMOGLOBIN 12.3 GM/dL (10.7-15.3); MCH 29.4 pg (25.7-33.7); MCHC 32.8 g/dl (32.0-36.0); MEAN CELL VOLUME 89.5 fl (80-96); MEAN PLT VOLUME 8.4 fl (7.5-11.1); PLATELET COUNT 243 10^3/uL (134-434); RBC 4.17 M/mm3 (3.60-5.2); RDW 13.5 % (11.6-15.6); WHITE BLOOD COUNT 2.9 K/mm3 (4.0-10.0)
[2021-05-07 12:08] LABS: ERYTHROCYTE SEDIMENTATION RATE 2 mm/hr (0-30)
[2021-05-07 12:21] LABS: BLOOD UREA NITROGEN 10.2 mg/dL (7-18); CALCIUM 8.9 mg/dL (8.5-10.1); CREATININE 0.3 mg/dL (0.55-1.3); PHOSPHOROUS 4.4 mg/dL (2.5-4.9)
[2021-05-07] MEDS: FAMOTIDINE 20 MG TABLET PO SCH (12:31)
[2021-05-07 12:58] LABS: URIC ACID 5.2 mg/dL (2.6-7.2)
[2021-05-08] MEDS: INDOMETHACIN 50 MG CAPSULE PO SCH ×2 (05:20→13:38)
[2021-05-08] MEDS: GABAPENTIN 300 MG CAPSULE PO SCH ×2 (05:20→13:37)
[2021-05-08] MEDS: oxyCODONE HCL 5 MG TABLET PO PRN ×2 (05:21→11:30)
[2021-05-08] MEDS: THIAMINE HCL 100 MG TABLET (FP) PO SCH (09:15)
[2021-05-08] MEDS: FAMOTIDINE 20 MG TABLET PO SCH (09:16)
[2021-05-08] MEDS: ARTIFICIAL TEARS (POLYVINYL ALCOHOL) OPTH DROPS OU SCH (09:16)
[2021-05-08] MEDS: FOLIC ACID 1 MG TABLET (FP) PO SCH (09:16)
[2021-05-08] MEDS: ENOXAPARIN NA (PORCINE) 40 MG/0.4 ML DISP.SYRIN SQ SCH (09:16)
[2021-05-08] MEDS: DIVALPROEX NA *ER* EXTEND REL 500 MG TABLET.SA (FP) PO SCH (09:16)
[2021-05-08] MEDS: NICOTINE 7 MG/24 HOURS TOPICAL PATCH TD SCH (09:16)
[2021-05-08] MEDS: FLUoxetine HCL 20 MG CAPSULE PO SCH (09:17)
[2021-05-08 13:55] VITALS: BP 128/65; PULSE 70; TEMP 97.8
== END 2021-05-08 17:12 | disposition home or self-care (01) | DRG 563 ==
LOC: JER 18:59 → JERBED 21:59 → J7W 05-04 02:55
PROVIDERS: ADMIT Internal Medicine; ATTEND Internal Medicine
DX: S92.414A Nondisplaced fracture of proximal phalanx of right great toe, initial encounter for closed fracture (principal); G40.909 Epilepsy, unspecified, not intractable, without status epilepticus; J45.909 Unspecified asthma, uncomplicated; H54.62 Unqualified visual loss, left eye, normal vision right eye; F10.10 Alcohol abuse, uncomplicated; F41.8 Other specified anxiety disorders; M10.9 Gout, unspecified; Z90.5 Acquired absence of kidney; X58.XXXA Exposure to other specified factors, initial encounter; Y92.9 Unspecified place or not applicable; Z88.0 Allergy status to penicillin
CPT/HCPCS: 36415; 73610-TC-RT-FY; 73630-TC-RT-FY; 80048; 80053; 83735; 84100; 84550; 85027; 85651; 86140; 87040; 93005; 93010; 93971-TC; 97116-GP; 97161-GP; 99285-25; C9803; U0003; U0005

== ENCOUNTER 2021-05-09 14:03 | Emergency (ER) | payer OTHER ==
[2021-05-09 14:18] VITALS: BP 156/86; PULSE 76; TEMP 97.7; BMI 24.2
[2021-05-09] MEDS ORDERED: KETOROLAC TROMETHAMINE 60 MG/2 ML VIAL IM ONE (14:36)
[2021-05-09] MEDS ORDERED: ACETAMINOPHEN 500 MG TABLET (FP) PO ONE (14:37)
[2021-05-09] MEDS ORDERED: ACETAMINOPHEN 500 MG TABLET (FP) ONE (14:48)
[2021-05-09] MEDS ORDERED: KETOROLAC TROMETHAMINE 60 MG/2 ML VIAL ONE (14:48)
== END 2021-05-09 15:17 | disposition left against medical advice (07) ==
LOC: JERFT 14:03
DX: M79.671 Pain in right foot (principal)
CPT/HCPCS: 99283-25

== ENCOUNTER 2021-05-15 01:39 | Emergency (ER) | payer OTHER ==
[2021-05-15 02:20] VITALS: BP 142/83; PULSE 73; TEMP 97.4; BMI 23.0
[2021-05-15] MEDS ORDERED: ACETAMINOPHEN 500 MG TABLET (FP) PO ONE (02:22)
[2021-05-15] MEDS ORDERED: ACETAMINOPHEN 500 MG TABLET (FP) ONE (02:31)
[2021-05-15] MEDS ORDERED: IBUPROFEN 600 MG TABLET (FP) PO ONE ×2 (04:19→04:22)
== END 2021-05-15 06:04 | disposition home or self-care (01) ==
LOC: JER 01:39
DX: M79.671 Pain in right foot (principal); W01.0XXA Fall on same level from slipping, tripping and stumbling without subsequent striking against object, initial encounter
CPT/HCPCS: 73562-TC-LT-FY; 73562-TC-RT-FY; 73610-TC-RT-FY; 73630-TC-RT-FY; 99285-25

== ENCOUNTER 2021-11-20 19:25 | Emergency (ER) | payer OTHER ==
[2021-11-20 19:56] VITALS: BP 97/67; PULSE 73; RESP 20; TEMP 97.5; BMI 24.4
[2021-11-20] MEDS ORDERED: LACTATED RINGERS SOLUTION 1000 ML INFUS.BAG IV ONE (20:02)
[2021-11-20] MEDS ORDERED: THIAMINE HCL 200 MG/2 ML VIAL IVPB ONE (20:02)
[2021-11-20] MEDS ORDERED: THIAMINE HCL 200 MG/2 ML VIAL ONE (22:02)
[2021-11-20 22:40] LABS: BASO % 1.5 % (0-2.0); EOS % 1.5 % (0-4.5); HEMATOCRIT 46.5 % (32.4-45.2); HEMOGLOBIN 15.9 GM/dL (10.7-15.3); LYMPH % 52.4 % (8-40); MCH 31.8 pg (25.7-33.7); MCHC 34.3 g/dl (32.0-36.0); MEAN CELL VOLUME 92.9 fl (80-96); MONO % 7.1 % (3.8-10.2); NEUT % 37.5 % (42.8-82.8); PLATELET COUNT 260 10^3/uL (134-434); RDW 13.9 % (11.6-15.6)
[2021-11-20 22:46] LABS: INR 1.07 (0.83-1.09); PROTHROMBIN TIME (PATIENT) 12.3 SEC (9.7-13.0)
[2021-11-20 22:48] LABS: ACTIVATED PTT 36.8 SECONDS (25.2-36.5)
[2021-11-20 22:52] LABS: URINE APPEARANCE CLEAR; URINE BILIRUBIN NEGATIVE (NEGATIVE); URINE COLOR YELLOW; URINE GLUCOSE (UA) NEGATIVE (NEGATIVE); URINE KETONE NEGATIVE (NEGATIVE); URINE LEUK ESTERASE NEGATIVE (NEGATIVE); URINE NITRITE NEGATIVE (NEGATIVE); URINE PROTEIN NEGATIVE (NEGATIVE); URINE UROBILINOGEN 0.2 mg/dL (0.2-1.0)
[2021-11-20 22:54] LABS: ALBUMIN 3.7 g/dl (3.4-5.0); BLOOD UREA NITROGEN 3.5 mg/dL (7-18); CALCIUM 9.1 mg/dL (8.5-10.1)
[2021-11-20 22:57] LABS: CREATININE 0.4 mg/dL (0.55-1.3)
[2021-11-20 22:59] LABS: BILIRUBIN,TOTAL 0.3 mg/dL (0.2-1); TOT PROT 7.8 g/dl (6.4-8.2)
== END 2021-11-21 00:41 | disposition left against medical advice (07) ==
LOC: JER 19:25
PROC: 3E033NZ Introduction of Analgesics, Hypnotics, Sedatives into Peripheral Vein, Percutaneous Approach (ICD-10-PCS; principal; 2021-11-20)
DX: R55 Syncope and collapse (principal); F10.120 Alcohol abuse with intoxication, uncomplicated
CPT/HCPCS: 0241U-QW; 36415; 70450-TC; 71045-TC-FY; 72125-TC; 73030-TC-LT-FY; 80053; 80185; 80307; 81003; 83690; 84484; 85025; 85610; 85730; 87086; 93005; 93010; 99285-25

== ENCOUNTER 2022-01-29 18:56 | Emergency (ER) | payer OTHER ==
[2022-01-29 19:38] VITALS: BP 128/90; PULSE 77; RESP 16; TEMP 97.7; BMI 25.0
== END 2022-01-30 05:50 | disposition home or self-care (01) ==
LOC: JER 18:56
DX: F10.929 Alcohol use, unspecified with intoxication, unspecified (principal); W19.XXXA Unspecified fall, initial encounter
CPT/HCPCS: 70450-TC; 72125-TC; 93005; 93010; 99284-25

== ENCOUNTER 2022-09-03 20:49 | Inpatient (IN) | payer OTHER ==
[2022-09-03 20:57] VITALS: BMI 22.3
[2022-09-03] MEDS ORDERED: ACETAMINOPHEN 500 MG TABLET (FP) PO ONE (21:44)
[2022-09-03] MEDS ORDERED: LIDOCAINE 5% TOPICAL PATCH TP ONE (21:44)
[2022-09-03] MEDS ORDERED: ALBUTEROL SO4 2.5/IPRATROPIUM 0.5 INH SOL 3 ML VIAL.NEB. NEB SCH (22:00)
[2022-09-03] MEDS ORDERED: LIDOCAINE PATCH REMOVAL MC SCH (22:00)
[2022-09-03] MEDS ORDERED: ACETAMINOPHEN 325 MG TABLET (FP) ONE (22:01)
[2022-09-03] MEDS ORDERED: LIDOCAINE 5% TOPICAL PATCH ONE (22:02)
[2022-09-03] MEDS ORDERED: VANCOMYCIN 1 GM in D5W (PRE-DOCKED) 1,000 MG/250 ML (RESTRICTED TO ID ONLY IVPB ONE (23:09)
[2022-09-03 23:12] LABS: BASO % 0.7 % (0-2.0); HEMATOCRIT 43.1 % (32.4-45.2); HEMOGLOBIN 14.9 GM/dL (10.7-15.3); LYMPH % 54.6 % (8-40); MCH 30.7 pg (25.7-33.7); MCHC 34.5 g/dl (32.0-36.0); MEAN CELL VOLUME 89.2 fl (80-96); MONO % 10.6 % (3.8-10.2); NEUT % 33.1 % (42.8-82.8); PLATELET COUNT 115 10^3/uL (134-434); RBC 4.84 M/mm3 (3.60-5.2); RDW 13.5 % (11.6-15.6); WHITE BLOOD COUNT 3.2 K/mm3 (4.0-10.0)
[2022-09-03 23:31] LABS: POTASSIUM 3.7 mmol/L (3.5-5.1)
[2022-09-03 23:33] LABS: CALCIUM 8.9 mg/dL (8.5-10.1)
[2022-09-03 23:34] LABS: ALBUMIN 3.4 g/dl (3.4-5.0); BLOOD UREA NITROGEN 4.9 mg/dL (7-18); MAGNESIUM 1.7 mg/dL (1.8-2.4)
[2022-09-03 23:37] LABS: CREATININE 0.5 mg/dL (0.55-1.3)
[2022-09-03 23:38] LABS: BILIRUBIN,TOTAL 1.4 mg/dL (0.2-1)
[2022-09-03 23:39] LABS: TOT PROT 7.6 g/dl (6.4-8.2)
[2022-09-03] MEDS ORDERED: MAGNESIUM SULF 50% (8.12 MEQ/2 ML-1 GM VIAL) IVPB ONE (23:44)
[2022-09-03] MEDS ORDERED: HALOPERIDOL LACTATE 5 MG/ML IM ONE ×2 (23:45→23:53)
[2022-09-03 23:54] VITALS: TEMP 98
[2022-09-04] MEDS ORDERED: VANCOMYCIN/WATER FOR INJ (PEG) 1,000 MG/200 ML BAG IVPB ONE (00:44)
[2022-09-04] MEDS ORDERED: MAGNESIUM SULFATE IN WATER 2 GM/50 ML IVPB IVPB ONE (00:45)
[2022-09-04] MEDS ORDERED: methylPREDNISolone NA SUCC 125 MG/2 ML VIAL IVPUSH ONE (01:42)
[2022-09-04] MEDS ORDERED: methylPREDNISolone NA SUCC 125 MG/2 ML VIAL ONE (01:54)
[2022-09-04] MEDS ORDERED: SODIUM CHLORIDE 1,000 ML IV SCH (03:15)
[2022-09-04 04:55] VITALS: BP 118/76; PULSE 78; RESP 20
[2022-09-04] MEDS ORDERED: ENOXAPARIN NA (PORCINE) 40 MG/0.4 ML DISP.SYRIN SQ SCH (10:00)
[2022-09-04] MEDS ORDERED: THIAMINE HCL 200 MG/2 ML VIAL IVPB SCH (10:00)
[2022-09-04] MEDS ORDERED: FOLIC ACID 1 MG TABLET (FP) PO SCH (10:00)
[2022-09-04] MEDS ORDERED: LIDOCAINE 5% TOPICAL PATCH TP SCH (10:00)
[2022-09-04] MEDS ORDERED: LIDOCAINE PATCH REMOVAL MC ONE (10:00)
[2022-09-04] MEDS ORDERED: LIDOCAINE PATCH REMOVAL MC SCH (22:00)
== END 2022-09-04 09:02 | disposition left against medical advice (07) | DRG 894 ==
LOC: JER 20:49 → JERBED 09-04 02:08 → OBSVTOIN 09-04 03:13 → J4W 09-04 06:53
PROVIDERS: ADMIT Internal Medicine; ATTEND Internal Medicine
DX: F10.120 Alcohol abuse with intoxication, uncomplicated (principal); E87.1 Hypo-osmolality and hyponatremia; R55 Syncope and collapse; J45.909 Unspecified asthma, uncomplicated; G40.909 Epilepsy, unspecified, not intractable, without status epilepticus; Z53.29 Procedure and treatment not carried out because of patient's decision for other reasons; Z86.16 Personal history of COVID-19; Z88.0 Allergy status to penicillin; F32.A Depression, unspecified; F41.9 Anxiety disorder, unspecified; Z28.310 Unvaccinated for COVID-19; R29.6 Repeated falls; E83.42 Hypomagnesemia; D69.6 Thrombocytopenia, unspecified; R74.01 Elevation of levels of liver transaminase levels
CPT/HCPCS: 36415; 70450-TC; 71045-TC-FY; 72125-TC; 80053; 80307; 83735; 84484; 85025; 93005; 93010; 99285-25; G0378

== ENCOUNTER 2022-09-29 18:05 | Emergency (ER) | payer OTHER ==
[2022-09-29 18:15] VITALS: BMI 17.5
[2022-09-29] MEDS ORDERED: HALOPERIDOL LACTATE 5 MG/ML IM ONE ×2 (19:34→19:57)
[2022-09-29] MEDS ORDERED: LORazepam 2 MG/ML SDV VIAL IM ONE (20:31)
[2022-09-30 03:33] VITALS: BP 113/60; PULSE 62; RESP 18; TEMP 97.3
== END 2022-09-30 07:53 | disposition home or self-care (01) ==
LOC: JER 18:05
PROC: 3E023GC Introduction of Other Therapeutic Substance into Muscle, Percutaneous Approach (ICD-10-PCS; principal; 2022-09-29)
PROC: 3E023GC Introduction of Other Therapeutic Substance into Muscle, Percutaneous Approach (ICD-10-PCS; 2022-09-29)
DX: F10.920 Alcohol use, unspecified with intoxication, uncomplicated (principal); S50.311D Abrasion of right elbow, subsequent encounter; S50.312D Abrasion of left elbow, subsequent encounter; S80.211D Abrasion, right knee, subsequent encounter; S80.212D Abrasion, left knee, subsequent encounter; W19.XXXD Unspecified fall, subsequent encounter; Y90.9 Presence of alcohol in blood, level not specified
CPT/HCPCS: 70450-TC; 71045-TC-FY; 72125-TC; 72170-TC-FY; 99284-25

== ENCOUNTER 2023-05-07 22:43 | Inpatient (IN) | payer OTHER ==
[2023-05-07] MEDS ORDERED: ACETAMINOPHEN 500 MG TABLET (FP) ONE (23:49)
[2023-05-08 00:32] LABS: BASO % 0.6 % (0-2.0); EOS % 2.4 % (0-4.5); HEMATOCRIT 37.7 % (32.4-45.2); HEMOGLOBIN 13.1 GM/dL (10.7-15.3); LYMPH % 48.3 % (8-40); MCH 32.5 pg (25.7-33.7); MCHC 34.8 g/dl (32.0-36.0); MEAN CELL VOLUME 93.4 fl (80-96); MEAN PLT VOLUME 8.4 fl (7.5-11.1); MONO % 11.7 % (3.8-10.2); PLATELET COUNT 295 10^3/uL (134-434); RBC 4.04 M/mm3 (3.60-5.2); RDW 13.1 % (11.6-15.6); WHITE BLOOD COUNT 5.3 K/mm3 (4.0-10.0)
[2023-05-08] MEDS: ACETAMINOPHEN 500 MG TABLET (FP) PO ONE (00:36)
[2023-05-08 00:37] LABS: PH,URINE 5.5 (5.0-8.0); URINE APPEARANCE CLEAR; URINE BILIRUBIN NEGATIVE (NEGATIVE); URINE COLOR YELLOW; URINE GLUCOSE (UA) NEGATIVE (NEGATIVE); URINE KETONE NEGATIVE (NEGATIVE); URINE LEUK ESTERASE NEGATIVE (NEGATIVE); URINE NITRITE NEGATIVE (NEGATIVE); URINE PROTEIN NEGATIVE (NEGATIVE); URINE UROBILINOGEN 0.2 mg/dL (0.2-1.0)
[2023-05-08 00:41] LABS: INR 1.05 (0.83-1.09); PROTHROMBIN TIME (PATIENT) 12.2 SEC (9.7-13.0)
[2023-05-08 00:44] LABS: ACTIVATED PTT 27.1 SECONDS (25.2-36.5)
[2023-05-08 00:51] LABS: CHLORIDE 105 mmol/L (98-107); POTASSIUM 4.9 mmol/L (3.5-5.1); SODIUM 140 mmol/L (136-145)
[2023-05-08 00:53] LABS: CALCIUM 8.8 mg/dL (8.5-10.1)
[2023-05-08 00:54] LABS: ALBUMIN 3.3 g/dl (3.4-5.0); ANION GAP 6 mmol/L (4-13); CO2 29 mmol/L (21-32); GLUCOSE,RANDOM 99 mg/dL (74-106)
[2023-05-08 00:55] LABS: MAGNESIUM 2.1 mg/dL (1.8-2.4)
[2023-05-08 00:57] LABS: CREATININE 0.4 mg/dL (0.55-1.3); PHOSPHOROUS 4.4 mg/dL (2.5-4.9); SGOT/AST 47 U/L (15-37); SGPT/ALT 30 U/L (13-61)
[2023-05-08 00:59] LABS: BILIRUBIN,TOTAL 0.4 mg/dL (0.2-1); TOT PROT 7.1 g/dl (6.4-8.2)
[2023-05-08 01:00] LABS: ALK PHOS 87 U/L (45-117)
[2023-05-08 01:07] LABS: BLOOD UREA NITROGEN 2.2 mg/dL (7-18)
[2023-05-08] MEDS: MAGNESIUM SULF 50% (8.12 MEQ/2 ML-1 GM VIAL) IVPB ONE (01:42)
[2023-05-08] MEDS ORDERED: MELATONIN 5 MG TABLETS ONE (04:06)
[2023-05-08] MEDS: MELATONIN 5 MG TABLETS PO ONE (04:10)
[2023-05-08] MEDS: SODIUM CHLORIDE 1,000 ML IV SCH (06:42)
[2023-05-08] MEDS ORDERED: chlordiazePOXIDE HCL 25 MG CAPSULE PO PRN (06:56)
[2023-05-08] MEDS ORDERED: ALBUTEROL SO4 HFA INHALER IH PRN (07:00)
[2023-05-08] MEDS ORDERED: PANTOPRAZOLE 40 MG TABLET PO ONE (09:28)
[2023-05-08] MEDS ORDERED: FOLIC ACID 1 MG TABLET (FP) ONE (09:28)
[2023-05-08] MEDS ORDERED: THIAMINE HCL 100 MG TABLET (FP) ONE (09:28)
[2023-05-08] MEDS ORDERED: DIVALPROEX NA *ER* EXTEND REL 250 MG TABLET.SA ONE (09:29)
[2023-05-08] MEDS: PANTOPRAZOLE 40 MG TABLET PO SCH (09:36)
[2023-05-08] MEDS: TIOTROPIUM BROMIDE 2.5 MCG (SPIRIVA) RESPIMAT INHALER IH SCH (09:36)
[2023-05-08] MEDS: DIVALPROEX NA *ER* EXTEND REL 500 MG TABLET.SA (FP) PO SCH (09:36)
[2023-05-08] MEDS: FOLIC ACID 1 MG TABLET (FP) PO SCH (09:36)
[2023-05-08] MEDS: THIAMINE HCL 100 MG TABLET (FP) PO SCH (09:36)
[2023-05-08] MEDS ORDERED: chlordiazePOXIDE HCL 25 MG CAPSULE PO SCH (11:00)
[2023-05-08] MEDS ORDERED: ACETAMINOPHEN INJECTION 100 ML IVPB ONE (11:16)
[2023-05-08] MEDS: ACETAMINOPHEN 1000 MG/100 ML BAG IVPB PRN (11:19)
[2023-05-08] MEDS: GABAPENTIN 300 MG CAPSULE PO SCH (14:25)
[2023-05-08] MEDS: oxyCODONE HCL 5 MG TABLET PO PRN (14:25)
[2023-05-08] MEDS: MONTELUKAST NA 10 MG TABLET PO SCH (21:12)
[2023-05-09 08:03] LABS: BASO % 0.9 % (0-2.0); HEMATOCRIT 37.2 % (32.4-45.2); HEMOGLOBIN 12.6 GM/dL (10.7-15.3); LYMPH % 39.6 % (8-40); MCH 32.1 pg (25.7-33.7); MCHC 33.8 g/dl (32.0-36.0); MEAN CELL VOLUME 95.2 fl (80-96); MEAN PLT VOLUME 8.1 fl (7.5-11.1); MONO % 12.6 % (3.8-10.2); NEUT % 44.9 % (42.8-82.8); PLATELET COUNT 224 10^3/uL (134-434); RBC 3.91 M/mm3 (3.60-5.2); RDW 12.9 % (11.6-15.6)
[2023-05-09 08:19] LABS: POTASSIUM 4.3 mmol/L (3.5-5.1)
[2023-05-09 08:21] LABS: ALBUMIN 2.8 g/dl (3.4-5.0); BLOOD UREA NITROGEN 7.2 mg/dL (7-18)
[2023-05-09 08:22] LABS: MAGNESIUM 1.7 mg/dL (1.8-2.4)
[2023-05-09 08:24] LABS: CREATININE 0.4 mg/dL (0.55-1.3); PHOSPHOROUS 3.7 mg/dL (2.5-4.9)
[2023-05-09 08:26] LABS: BILIRUBIN,TOTAL 0.6 mg/dL (0.2-1); TOT PROT 6.5 g/dl (6.4-8.2)
[2023-05-09] MEDS: FLUoxetine HCL 20 MG CAPSULE PO SCH (09:07)
[2023-05-09] MEDS: ERGOCALCIFEROL (VIT D2) 50,000 UNIT (1.25 MG) CAPSULE PO SCH (11:21)
[2023-05-09] MEDS ORDERED: ACETAMINOPHEN 1000 MG/100 ML BAG IVPB PRN (15:16)
[2023-05-09] MEDS: MAGNESIUM SULF 50% (8.12 MEQ/2 ML-1 GM VIAL) IVPB ONE (15:48)
[2023-05-10] MEDS ORDERED: chlordiazePOXIDE HCL 25 MG CAPSULE PO SCH (05:00)
[2023-05-11] MEDS ORDERED: chlordiazePOXIDE HCL 10 MG CAPSULE PO PRN
[2023-05-11] MEDS ORDERED: chlordiazePOXIDE HCL 10 MG CAPSULE PO SCH (05:00)
[2023-05-11 11:54] LABS: HEMATOCRIT 38.8 % (32.4-45.2); HEMOGLOBIN 12.8 GM/dL (10.7-15.3); MCH 31.9 pg (25.7-33.7); MEAN CELL VOLUME 96.7 fl (80-96); MEAN PLT VOLUME 8.1 fl (7.5-11.1); PLATELET COUNT 215 10^3/uL (134-434); RBC 4.01 M/mm3 (3.60-5.2); RDW 12.9 % (11.6-15.6); WHITE BLOOD COUNT 4.4 K/mm3 (4.0-10.0)
[2023-05-11 12:12] LABS: POTASSIUM 4.7 mmol/L (3.5-5.1)
[2023-05-11 12:23] LABS: CALCIUM 9.7 mg/dL (8.5-10.1)
[2023-05-11 12:24] LABS: BLOOD UREA NITROGEN 6.2 mg/dL (7-18)
[2023-05-11 12:27] LABS: CREATININE 0.3 mg/dL (0.55-1.3); PHOSPHOROUS 3.7 mg/dL (2.5-4.9)
[2023-05-11 12:29] LABS: BILIRUBIN,TOTAL 0.6 mg/dL (0.2-1)
[2023-05-11 12:31] LABS: TOT PROT 6.8 g/dl (6.4-8.2)
[2023-05-11] MEDS: oxyCODONE HCL 5 MG TABLET PO PRN (19:01)
[2023-05-11 23:56] VITALS: BMI 23.0
[2023-05-12] MEDS ORDERED: chlordiazePOXIDE HCL 10 MG CAPSULE PO SCH (05:00)
[2023-05-12 05:59] VITALS: RESP 20
[2023-05-12] MEDS: PANTOPRAZOLE 40 MG TABLET PO SCH (09:27)
[2023-05-12 10:56] VITALS: BP 115/70; PULSE 68; TEMP 97.3
[2023-05-13] MEDS ORDERED: chlordiazePOXIDE HCL 10 MG CAPSULE PO ONE (05:00)
== END 2023-05-12 12:59 | disposition home or self-care (01) | DRG 87 ==
LOC: JER 22:43 → OBSVTOIN 05-08 03:34 → JERBED 05-08 03:34 → J4W 05-08 12:40
PROVIDERS: ADMIT Internal Medicine; ATTEND Internal Medicine
DX: S06.5X0A Traumatic subdural hemorrhage without loss of consciousness, initial encounter (principal); F41.9 Anxiety disorder, unspecified; F32.A Depression, unspecified; J45.909 Unspecified asthma, uncomplicated; F10.220 Alcohol dependence with intoxication, uncomplicated; M25.572 Pain in left ankle and joints of left foot; G40.909 Epilepsy, unspecified, not intractable, without status epilepticus; W19.XXXA Unspecified fall, initial encounter; Y93.89 Activity, other specified; Y92.009 Unspecified place in unspecified non-institutional (private) residence as the place of occurrence of the external cause; Y99.8 Other external cause status
CPT/HCPCS: 0241U-QW; 36415; 70450-TC; 71045-TC-FY; 72125-TC; 73562-TC-LT-FY; 73610-TC-LT-FY; 73630-TC-LT; 73700-TC-RT; 80053; 80307; 81003; 82550; 83605; 83735; 84100; 84484; 84550; 85025; 85027; 85610; 85730; 86850; 86900; 86901; 87086; 93005; 93010; 97116-GP; 97162-GP; 99285-25; J0131

== ENCOUNTER 2023-05-13 03:01 | Emergency (ER) | payer OTHER ==
[2023-05-13 03:36] VITALS: BP 118/88; PULSE 75; RESP 20; TEMP 97.8; BMI 23.0
[2023-05-13] MEDS ORDERED: ACETAMINOPHEN INJECTION 100 ML IVPB ONE (04:10)
[2023-05-13] MEDS: ACETAMINOPHEN 1000 MG/100 ML BAG IVPB ONE (05:12)
== END 2023-05-13 05:12 | disposition left against medical advice (07) ==
LOC: JER 03:01 → JERBED 03:50 → UNDOADMOB 03:50
DX: M79.672 Pain in left foot (principal); R26.2 Difficulty in walking, not elsewhere classified
CPT/HCPCS: 99283-25

== ENCOUNTER 2023-05-13 20:10 | Inpatient (IN) | payer OTHER ==
[2023-05-13] MEDS: ACETAMINOPHEN 1000 MG/100 ML BAG IVPB ONE (21:27)
[2023-05-13] MEDS: ACETAMINOPHEN 325 MG TABLET (FP) PO ONE (21:28)
[2023-05-13 21:42] LABS: BASO % 1.7 % (0-2.0); EOS % 1.8 % (0-4.5); HEMATOCRIT 40.3 % (32.4-45.2); HEMOGLOBIN 13.6 GM/dL (10.7-15.3); LYMPH % 47.8 % (8-40); MCH 31.8 pg (25.7-33.7); MCHC 33.6 g/dl (32.0-36.0); MEAN CELL VOLUME 94.7 fl (80-96); MEAN PLT VOLUME 7.8 fl (7.5-11.1); MONO % 12.3 % (3.8-10.2); NEUT % 36.4 % (42.8-82.8); PLATELET COUNT 267 10^3/uL (134-434); RBC 4.26 M/mm3 (3.60-5.2); RDW 13.1 % (11.6-15.6); WHITE BLOOD COUNT 5.3 K/mm3 (4.0-10.0)
[2023-05-13 21:57] LABS: POTASSIUM 4.2 mmol/L (3.5-5.1)
[2023-05-13 22:00] LABS: BLOOD UREA NITROGEN 5.7 mg/dL (7-18)
[2023-05-13 22:01] LABS: ALBUMIN 3.4 g/dl (3.4-5.0)
[2023-05-13 22:03] LABS: CREATININE 0.4 mg/dL (0.55-1.3)
[2023-05-13 22:05] LABS: BILIRUBIN,TOTAL 0.3 mg/dL (0.2-1); TOT PROT 7.8 g/dl (6.4-8.2)
[2023-05-13] MEDS ORDERED: ACETAMINOPHEN INJECTION 100 ML IVPB ONE (23:49)
[2023-05-14] MEDS ORDERED: THIAMINE HCL 200 MG/2 ML VIAL ONE (04:00)
[2023-05-14] MEDS ORDERED: FOLIC ACID 1 MG TABLET (FP) ONE (04:00)
[2023-05-14] MEDS: FOLIC ACID 1 MG TABLET (FP) PO ONE (04:09)
[2023-05-14] MEDS: THIAMINE HCL 200 MG/2 ML VIAL IVPB ONE (04:09)
[2023-05-14] MEDS ORDERED: ACETAMINOPHEN 325 MG TABLET (FP) PO PRN ×2 (04:33→11:53)
[2023-05-14] MEDS: GABAPENTIN 300 MG CAPSULE PO SCH (06:40)
[2023-05-14 09:37] LABS: PH,URINE 7.5 (5.0-8.0); URINE APPEARANCE CLEAR; URINE BILIRUBIN NEGATIVE (NEGATIVE); URINE COLOR YELLOW; URINE GLUCOSE (UA) NEGATIVE (NEGATIVE); URINE KETONE NEGATIVE (NEGATIVE); URINE LEUK ESTERASE NEGATIVE (NEGATIVE); URINE NITRITE NEGATIVE (NEGATIVE); URINE PROTEIN NEGATIVE (NEGATIVE)
[2023-05-14] MEDS ORDERED: DIVALPROEX NA *ER* EXTEND REL 500 MG TABLET.SA (FP) PO SCH (10:00)
[2023-05-14] MEDS ORDERED: METHIMAZOLE 5 MG TABLET PO SCH (10:00)
[2023-05-14] MEDS ORDERED: PATIENT'S OWN MEDICATION (NON-FORMULARY) (Fluticasone/Salmeterol [Advair Hfa 230-21 Mcg In IH SCH (10:00)
[2023-05-14 10:17] LABS: BASO % 1.2 % (0-2.0); EOS % 2.1 % (0-4.5); LYMPH % 41.9 % (8-40); MCH 31.5 pg (25.7-33.7); MCHC 33.2 g/dl (32.0-36.0); MEAN CELL VOLUME 94.8 fl (80-96); MEAN PLT VOLUME 8.2 fl (7.5-11.1); MONO % 18.2 % (3.8-10.2); NEUT % 36.6 % (42.8-82.8); PLATELET COUNT 218 10^3/uL (134-434); WHITE BLOOD COUNT 3.7 K/mm3 (4.0-10.0)
[2023-05-14 10:29] LABS: CHLORIDE 105 mmol/L (98-107); POTASSIUM 4.2 mmol/L (3.5-5.1); SODIUM 138 mmol/L (136-145)
[2023-05-14] MEDS: LIDOCAINE 4% PATCH TP SCH (10:31)
[2023-05-14] MEDS: NICOTINE 14 MG/24 HOURS TOPICAL PATCH TD SCH (10:31)
[2023-05-14] MEDS: TIOTROPIUM BROMIDE 2.5 MCG (SPIRIVA) RESPIMAT INHALER IH SCH (10:32)
[2023-05-14] MEDS: DIVALPROEX NA *ER* EXTEND REL 500 MG TABLET.SA (FP) PO SCH (10:32)
[2023-05-14 10:37] LABS: CALCIUM 9.1 mg/dL (8.5-10.1)
[2023-05-14 10:38] LABS: ALBUMIN 2.8 g/dl (3.4-5.0); ANION GAP 7 mmol/L (4-13); CO2 27 mmol/L (21-32); GLUCOSE,RANDOM 86 mg/dL (74-106)
[2023-05-14 10:41] LABS: CREATININE 0.3 mg/dL (0.55-1.3); SGOT/AST 15 U/L (15-37); SGPT/ALT 15 U/L (13-61)
[2023-05-14 10:42] LABS: BILIRUBIN,TOTAL 0.5 mg/dL (0.2-1); TOT PROT 6.5 g/dl (6.4-8.2)
[2023-05-14 10:43] LABS: ALK PHOS 87 U/L (45-117)
[2023-05-14] MEDS: FLUoxetine HCL 20 MG CAPSULE PO SCH (11:27)
[2023-05-14] MEDS ORDERED: ALBUTEROL SO4 HFA INHALER IH PRN (11:46)
[2023-05-14] MEDS ORDERED: hydrALAZINE HCL 10 MG TABLET PO PRN (16:28)
[2023-05-14] MEDS: LIDOCAINE PATCH REMOVAL MC SCH (21:27)
[2023-05-14] MEDS: MONTELUKAST NA 10 MG TABLET PO SCH (21:27)
[2023-05-14] MEDS: BUDESONIDE/FORMETEROL FUMARATE 80/4.5 mcg INHALER IH SCH (22:50)
[2023-05-15 14:46] VITALS: BMI 18.5
[2023-05-16] MEDS: ERGOCALCIFEROL (VIT D2) 50,000 UNIT (1.25 MG) CAPSULE PO SCH (09:34)
[2023-05-17 10:39] LABS: BASO % 1.1 % (0-2.0); EOS % 2.9 % (0-4.5); HEMATOCRIT 34.6 % (32.4-45.2); LYMPH % 36.4 % (8-40); MCH 32.4 pg (25.7-33.7); MCHC 34.7 g/dl (32.0-36.0); MEAN CELL VOLUME 93.2 fl (80-96); MEAN PLT VOLUME 8.9 fl (7.5-11.1); MONO % 18.5 % (3.8-10.2); NEUT % 41.1 % (42.8-82.8); PLATELET COUNT 237 10^3/uL (134-434); RBC 3.71 M/mm3 (3.60-5.2); WHITE BLOOD COUNT 3.9 K/mm3 (4.0-10.0)
[2023-05-17 11:04] LABS: POTASSIUM 4.2 mmol/L (3.5-5.1)
[2023-05-17 11:08] LABS: BLOOD UREA NITROGEN 7.8 mg/dL (7-18); CALCIUM 8.9 mg/dL (8.5-10.1)
[2023-05-17 11:12] LABS: CREATININE 0.5 mg/dL (0.55-1.3)
[2023-05-17 12:19] VITALS: BP 122/80; PULSE 66; RESP 18; TEMP 97.9
== END 2023-05-17 18:04 | disposition home or self-care (01) | DRG 86 ==
LOC: JER 20:10 → JERBED 05-14 01:00 → J7W 05-14 05:27 → OBSVTOIN 05-14 12:08
PROVIDERS: ADMIT Internal Medicine; ATTEND Nurse Practitioner
DX: S06.5X0A Traumatic subdural hemorrhage without loss of consciousness, initial encounter (principal); E44.0 Moderate protein-calorie malnutrition; Z68.1 Body mass index [BMI] 19.9 or less, adult; G89.18 Other acute postprocedural pain; G40.909 Epilepsy, unspecified, not intractable, without status epilepticus; F17.210 Nicotine dependence, cigarettes, uncomplicated; W19.XXXA Unspecified fall, initial encounter; Y93.9 Activity, unspecified; Y92.89 Other specified places as the place of occurrence of the external cause; Y99.9 Unspecified external cause status
CPT/HCPCS: 36415; 70450-TC; 80048; 80053; 80307; 81003; 85025; 97116-GP; 97161-GP; 99285-25; G0378; J0131

== ENCOUNTER 2023-05-21 00:07 | Emergency (ER) | payer OTHER ==
[2023-05-21 00:26] VITALS: BMI 23.0
[2023-05-21] MEDS ORDERED: ACETAMINOPHEN INJECTION 100 ML IVPB ONE (01:51)
[2023-05-21] MEDS: ACETAMINOPHEN 1000 MG/100 ML BAG IVPB ONE (01:54)
[2023-05-21 01:55] LABS: BASO % 2.2 % (0-2.0); EOS % 1.7 % (0-4.5); HEMATOCRIT 42.3 % (32.4-45.2); HEMOGLOBIN 14.6 GM/dL (10.7-15.3); LYMPH % 45.3 % (8-40); MCH 32.2 pg (25.7-33.7); MCHC 34.5 g/dl (32.0-36.0); MEAN CELL VOLUME 93.4 fl (80-96); MEAN PLT VOLUME 7.8 fl (7.5-11.1); MONO % 9.1 % (3.8-10.2); NEUT % 41.7 % (42.8-82.8); PLATELET COUNT 342 10^3/uL (134-434); RBC 4.53 M/mm3 (3.60-5.2); RDW 13.3 % (11.6-15.6); WHITE BLOOD COUNT 5.9 K/mm3 (4.0-10.0)
[2023-05-21 02:21] LABS: CHLORIDE 102 mmol/L (98-107); SODIUM 136 mmol/L (136-145)
[2023-05-21 02:22] LABS: CALCIUM 8.6 mg/dL (8.5-10.1)
[2023-05-21 02:23] LABS: CO2 27 mmol/L (21-32); GLUCOSE,RANDOM 72 mg/dL (74-106)
[2023-05-21 02:26] LABS: CREATININE 0.5 mg/dL (0.55-1.3); SGOT/AST 73 U/L (15-37); SGPT/ALT 26 U/L (13-61)
[2023-05-21 02:28] LABS: BILIRUBIN,TOTAL 0.4 mg/dL (0.2-1); TOT PROT 8.4 g/dl (6.4-8.2)
[2023-05-21 03:26] LABS: ALBUMIN 3.5 g/dl (3.4-5.0); ALK PHOS 128 U/L (45-117); ANION GAP 7 mmol/L (4-13); MAGNESIUM 1.8 mg/dL (1.8-2.4); POTASSIUM 6.2 mmol/L (3.5-5.1)
[2023-05-21 04:06] LABS: POTASSIUM 3.9 mmol/L (3.5-5.1)
[2023-05-21 04:07] LABS: CALCIUM 8.3 mg/dL (8.5-10.1)
[2023-05-21 04:08] LABS: BLOOD UREA NITROGEN 6.3 mg/dL (7-18)
[2023-05-21 04:11] LABS: CREATININE 0.4 mg/dL (0.55-1.3)
[2023-05-21 06:00] VITALS: BP 105/52; PULSE 71; RESP 16; TEMP 97.7
== END 2023-05-21 06:55 | disposition home or self-care (01) ==
LOC: JER 00:07
PROC: 3E033NZ Introduction of Analgesics, Hypnotics, Sedatives into Peripheral Vein, Percutaneous Approach (ICD-10-PCS; principal; 2023-05-21)
DX: M79.605 Pain in left leg (principal); R51.9 Headache, unspecified
CPT/HCPCS: 36415; 70450-TC; 80048; 80053; 80307; 83605; 83735; 85025; 93005; 93010; 93971-TC; J0131

== ENCOUNTER 2023-06-19 00:56 | Emergency (ER) | payer OTHER ==
[2023-06-19 01:15] VITALS: BP 148/92; PULSE 82; RESP 20; TEMP 98; BMI 18.8
[2023-06-19] MEDS ORDERED: METOCLOPRAMIDE HCL INJECTION 10 MG/2 ML VIAL ONE (02:31)
[2023-06-19] MEDS ORDERED: ACETAMINOPHEN INJECTION 100 ML IVPB ONE (02:32)
[2023-06-19] MEDS ORDERED: ACETAMINOPHEN 500 MG TABLET (FP) ONE (04:09)
[2023-06-19] MEDS: METOCLOPRAMIDE HCL INJECTION 10 MG/2 ML VIAL IVPUSH ONE (04:11)
[2023-06-19] MEDS: ACETAMINOPHEN 1000 MG/100 ML BAG IVPB ONE (04:11)
[2023-06-19] MEDS: LACTATED RINGERS SOLUTION 1000 ML INFUS.BAG IV ONE (04:11)
[2023-06-19] MEDS: ACETAMINOPHEN 500 MG TABLET (FP) PO ONE (04:14)
== END 2023-06-19 04:16 | disposition home or self-care (01) ==
LOC: JER 00:56
DX: M79.672 Pain in left foot (principal); R51.9 Headache, unspecified
CPT/HCPCS: 70450-TC; 73630-TC-LT; 99284-25

== ENCOUNTER 2023-09-01 02:46 | Inpatient (IN) | payer OTHER ==
[2023-09-01] MEDS: morphine CARPU-JECT 2 MG/1 ML DISP.SYRIN IVPUSH ONE (08:35)
[2023-09-01 09:06] LABS: BASO % 0.8 % (0-2.0); EOS % 3.3 % (0-4.5); HEMOGLOBIN 11.9 GM/dL (10.7-15.3); MCH 31.5 pg (25.7-33.7); MCHC 33.1 g/dl (32.0-36.0); MEAN CELL VOLUME 95.3 fl (80-96); MEAN PLT VOLUME 7.6 fl (7.5-11.1); MONO % 17.8 % (3.8-10.2); NEUT % 38.1 % (42.8-82.8); PLATELET COUNT 248 10^3/uL (134-434); RBC 3.78 M/mm3 (3.60-5.2); RDW 14.3 % (11.6-15.6); WHITE BLOOD COUNT 3.9 K/mm3 (4.0-10.0)
[2023-09-01] MEDS ORDERED: THIAMINE 100 MG TABLET ONE (09:28)
[2023-09-01] MEDS ORDERED: LIDOCAINE 5% TOPICAL PATCH ONE (09:28)
[2023-09-01] MEDS ORDERED: FOLIC ACID 1 MG TABLET (FP) ONE (09:28)
[2023-09-01 09:29] LABS: POTASSIUM 4.1 mmol/L (3.5-5.1)
[2023-09-01] MEDS: LIDOCAINE 5% TOPICAL PATCH TP ONE (09:30)
[2023-09-01] MEDS: THIAMINE 100 MG TABLET PO SCH (09:30)
[2023-09-01] MEDS: FOLIC ACID 1 MG TABLET (FP) PO ONE (09:30)
[2023-09-01 09:32] LABS: BLOOD UREA NITROGEN 3.8 mg/dL (7-18); CALCIUM 8.7 mg/dL (8.5-10.1)
[2023-09-01 09:33] LABS: ALBUMIN 2.7 g/dl (3.4-5.0)
[2023-09-01 09:36] LABS: CREATININE 0.3 mg/dL (0.55-1.3)
[2023-09-01 09:37] LABS: BILIRUBIN,TOTAL 0.2 mg/dL (0.2-1); TOT PROT 6.9 g/dl (6.4-8.2)
[2023-09-01] MEDS ORDERED: ALBUTEROL SO4 HFA INHALER IH PRN (10:00)
[2023-09-01] MEDS: METHIMAZOLE 5 MG TABLET PO SCH (11:55)
[2023-09-01] MEDS: oxyCODONE HCL 5 MG TABLET PO PRN (11:55)
[2023-09-01] MEDS ORDERED: ACETAMINOPHEN 1000 MG/100 ML BAG IVPB SCH (12:00)
[2023-09-01] MEDS ORDERED: oxyCODONE HCL 5 MG TABLET PO PRN (12:00)
[2023-09-01] MEDS: ACETAMINOPHEN 325 MG TABLET (FP) PO SCH (13:34)
[2023-09-01] MEDS: BUDESONIDE/FORMETEROL FUMARATE 80/4.5 mcg INHALER IH SCH (13:35)
[2023-09-01] MEDS: NICOTINE 7 MG/24 HOURS TOPICAL PATCH TD SCH (13:35)
[2023-09-01] MEDS: DIVALPROEX NA *ER* EXTEND REL 500 MG TABLET.SA (FP) PO SCH (13:35)
[2023-09-01] MEDS: GABAPENTIN 300 MG CAPSULE PO SCH (22:07)
[2023-09-01] MEDS: MONTELUKAST NA 10 MG TABLET PO SCH (22:08)
[2023-09-01] MEDS: LIDOCAINE PATCH REMOVAL MC ONE (22:30)
[2023-09-02] MEDS: FOLIC ACID 1 MG TABLET (FP) PO SCH (10:17)
[2023-09-02] MEDS ORDERED: guaiFENesin 200 MG/10 ML 10 ML UNIT-DOSE CUPS PO PRN (10:50)
[2023-09-02] MEDS: KETOROLAC TROMETHAMINE 30 MG/1 ML VIAL IVPUSH ONE (12:03)
[2023-09-02] MEDS: IBUPROFEN 600 MG TABLET (FP) PO ONE (12:12)
[2023-09-02] MEDS: ACETAMINOPHEN 325 MG TABLET (FP) PO SCH (15:03)
[2023-09-02] MEDS: guaiFENesin 600 MG TABLET.ER (FP) PO SCH (21:12)
[2023-09-02] MEDS: LIDOCAINE PATCH REMOVAL MC SCH (21:12)
[2023-09-03 09:03] LABS: HEMATOCRIT 36.1 % (32.4-45.2); MCH 31.8 pg (25.7-33.7); MCHC 33.3 g/dl (32.0-36.0); MEAN CELL VOLUME 95.3 fl (80-96); PLATELET COUNT 274 10^3/uL (134-434); RBC 3.78 M/mm3 (3.60-5.2); RDW 14.7 % (11.6-15.6); WHITE BLOOD COUNT 3.6 K/mm3 (4.0-10.0)
[2023-09-03 09:16] LABS: POTASSIUM 5.2 mmol/L (3.5-5.1)
[2023-09-03 09:26] LABS: ALBUMIN 2.8 g/dl (3.4-5.0); BLOOD UREA NITROGEN 7.3 mg/dL (7-18); CALCIUM 9.2 mg/dL (8.5-10.1); MAGNESIUM 2.1 mg/dL (1.8-2.4)
[2023-09-03 09:29] LABS: CREATININE 0.3 mg/dL (0.55-1.3); PHOSPHOROUS 4.2 mg/dL (2.5-4.9)
[2023-09-03 09:31] LABS: BILIRUBIN,TOTAL 0.3 mg/dL (0.2-1)
[2023-09-03] MEDS: LIDOCAINE 5% TOPICAL PATCH TP SCH (09:50)
[2023-09-03] MEDS: DOXYCYCLINE HYCLATE 100 MG CAPSULE PO SCH (11:45)
[2023-09-03 15:38] LABS: METHADONE, UR NEGATIVE (NEGATIVE); PHENCYCLIDINE,URINE NEGATIVE (NEGATIVE); URINE BARBITURATES NEGATIVE (NEGATIVE)
[2023-09-03 15:40] LABS: COCAINE, UR NEGATIVE (NEGATIVE); OPIATES, URI POSITIVE (NEGATIVE); URINE AMPHETAMINES NEGATIVE (NEGATIVE); URINE BENZODIAZEPINES NEGATIVE (NEGATIVE)
[2023-09-03] MEDS: ACETAMINOPHEN 325 MG TABLET (FP) PO SCH (17:08)
[2023-09-04] MEDS: oxyCODONE HCL 5 MG TABLET PO PRN (09:27)
[2023-09-04 10:20] LABS: HEMATOCRIT 35.7 % (32.4-45.2); MCH 31.9 pg (25.7-33.7); MCHC 33.6 g/dl (32.0-36.0); MEAN CELL VOLUME 94.8 fl (80-96); PLATELET COUNT 283 10^3/uL (134-434); RBC 3.77 M/mm3 (3.60-5.2); RDW 14.5 % (11.6-15.6)
[2023-09-04 10:36] LABS: POTASSIUM 5.3 mmol/L (3.5-5.1)
[2023-09-04 10:39] LABS: ALBUMIN 2.7 g/dl (3.4-5.0); BLOOD UREA NITROGEN 8.3 mg/dL (7-18)
[2023-09-04 10:42] LABS: CREATININE 0.4 mg/dL (0.55-1.3)
[2023-09-04 10:43] LABS: BILIRUBIN,TOTAL 0.3 mg/dL (0.2-1); TOT PROT 6.9 g/dl (6.4-8.2)
[2023-09-04 15:56] VITALS: BMI 17.2
[2023-09-04] MEDS: SODIUM ZIRCONIUM CYCLOSILICATE (LOKELMA) 5 GM PACKET PO SCH (18:21)
[2023-09-04] MEDS: BUDESONIDE/FORMETEROL FUMARATE 160/4.5 mcg INHALER IH SCH (22:30)
[2023-09-05 10:03] LABS: POTASSIUM 4.9 mmol/L (3.5-5.1)
[2023-09-05 10:07] LABS: BLOOD UREA NITROGEN 8.4 mg/dL (7-18); CALCIUM 8.9 mg/dL (8.5-10.1)
[2023-09-05 10:11] LABS: CREATININE 0.4 mg/dL (0.55-1.3)
[2023-09-06 10:28] VITALS: BP 113/68; PULSE 76; RESP 18; TEMP 98.3
== END 2023-09-06 14:04 | disposition home or self-care (01) | DRG 183 ==
LOC: JER 02:46 → JERBED 08:57 → J6S 10:45
PROVIDERS: ADMIT Internal Medicine; ATTEND Internal Medicine
DX: S22.41XA Multiple fractures of ribs, right side, initial encounter for closed fracture (principal); E43 Unspecified severe protein-calorie malnutrition; J90 Pleural effusion, not elsewhere classified; Z68.1 Body mass index [BMI] 19.9 or less, adult; J45.909 Unspecified asthma, uncomplicated; F41.8 Other specified anxiety disorders; R29.6 Repeated falls; F10.20 Alcohol dependence, uncomplicated; R91.8 Other nonspecific abnormal finding of lung field; J44.9 Chronic obstructive pulmonary disease, unspecified; G40.909 Epilepsy, unspecified, not intractable, without status epilepticus; E05.90 Thyrotoxicosis, unspecified without thyrotoxic crisis or storm; F17.210 Nicotine dependence, cigarettes, uncomplicated; W06.XXXA Fall from bed, initial encounter; Y92.099 Unspecified place in other non-institutional residence as the place of occurrence of the external cause; Y99.9 Unspecified external cause status
CPT/HCPCS: 36415; 70450-TC; 71101-TC-RT-FY; 71250-TC; 72131-TC; 72170-TC-FY; 72192-TC; 73030-TC-RT-FY; 80048; 80053; 80164; 80307; 82550; 82607; 82746; 83735; 84100; 84439; 84443; 85025; 85027; 93971-TC; 97116-GP; 97162-GP; 99285-25

== ENCOUNTER 2023-10-14 19:31 | Inpatient (IN) | payer OTHER ==
[2023-10-14] MEDS ORDERED: guaiFENesin 200 MG/10 ML 10 ML UNIT-DOSE CUPS ONE (21:12)
[2023-10-14] MEDS ORDERED: ACETAMINOPHEN INJECTION 100 ML IVPB ONE (21:12)
[2023-10-14 21:36] LABS: BASO % 2.1 % (0-2.0); EOS % 2.2 % (0-4.5); HEMATOCRIT 42.3 % (32.4-45.2); HEMOGLOBIN 14.2 GM/dL (10.7-15.3); LYMPH % 44.8 % (8-40); MCH 32.6 pg (25.7-33.7); MCHC 33.6 g/dl (32.0-36.0); MEAN CELL VOLUME 96.8 fl (80-96); MONO % 9.5 % (3.8-10.2); NEUT % 41.4 % (42.8-82.8); PLATELET COUNT 433 10^3/uL (134-434); RBC 4.36 M/mm3 (3.60-5.2); RDW 14.3 % (11.6-15.6); WHITE BLOOD COUNT 5.1 K/mm3 (4.0-10.0)
[2023-10-14] MEDS: guaiFENesin 200 MG/10 ML 10 ML UNIT-DOSE CUPS PO ONE (21:37)
[2023-10-14] MEDS: SODIUM CHLORIDE 0.9% 500 ML INFUS.BAG IV ONE (21:37)
[2023-10-14] MEDS: ACETAMINOPHEN 1000 MG/100 ML BAG IVPB ONE (21:37)
[2023-10-14 21:41] LABS: INR 1.03 (0.83-1.09); PROTHROMBIN TIME (PATIENT) 11.6 SEC (9.7-13.0)
[2023-10-14 21:44] LABS: ACTIVATED PTT 34.8 SECONDS (25.2-36.5)
[2023-10-14 22:02] LABS: POTASSIUM 4.4 mmol/L (3.5-5.1)
[2023-10-14 22:04] LABS: ALBUMIN 2.8 g/dl (3.4-5.0); CALCIUM 9.1 mg/dL (8.5-10.1); MAGNESIUM 1.8 mg/dL (1.8-2.4)
[2023-10-14 22:07] LABS: CREATININE 0.4 mg/dL (0.55-1.3); PHOSPHOROUS 3.7 mg/dL (2.5-4.9)
[2023-10-14 22:09] LABS: BILIRUBIN,TOTAL 0.2 mg/dL (0.2-1); TOT PROT 7.7 g/dl (6.4-8.2)
[2023-10-15] MEDS: CEFTRIAXONE 1 GM in DEXTROSE 5%-WATER - 100 ML IVPB ONE (01:06)
[2023-10-15] MEDS: AZITHROMYCIN IVPB 500 MG in DEXTROSE 5%-WATER - 250 ML IVPB ONE (01:06)
[2023-10-15] MEDS: FOLIC ACID INJECTION - 1 MG, THIAMINE HCL 100 MG, MULTIVIT INJECTION ADULT 10 ML in SOD... IVPB ONE (06:00)
[2023-10-15] MEDS: THIAMINE 100 MG TABLET PO SCH (09:37)
[2023-10-15] MEDS: ENOXAPARIN NA (PORCINE) 40 MG/0.4 ML DISP.SYRIN SQ SCH (09:37)
[2023-10-15] MEDS: FOLIC ACID 1 MG TABLET (FP) PO SCH (09:37)
[2023-10-15] MEDS: DIVALPROEX NA *ER* EXTEND REL 500 MG TABLET.SA (FP) PO SCH (09:37)
[2023-10-15 09:53] LABS: CHLORIDE 109 mmol/L (98-107); POTASSIUM 5.1 mmol/L (3.5-5.1); SODIUM 139 mmol/L (136-145)
[2023-10-15 10:00] LABS: ALBUMIN 2.3 g/dl (3.4-5.0); ANION GAP 6 mmol/L (4-13); CO2 24 mmol/L (21-32); CREATININE 0.3 mg/dL (0.55-1.3); GLUCOSE,RANDOM 64 mg/dL (74-106); SGPT/ALT 13 U/L (13-61)
[2023-10-15 10:01] LABS: BLOOD UREA NITROGEN 2.8 mg/dL (7-18)
[2023-10-15 10:02] LABS: BILIRUBIN,TOTAL 0.5 mg/dL (0.2-1); TOT PROT 6.6 g/dl (6.4-8.2)
[2023-10-15 10:03] LABS: ALK PHOS 83 U/L (45-117); SGOT/AST 33 U/L (15-37)
[2023-10-15 10:04] LABS: CALCIUM 8.3 mg/dL (8.5-10.1); MAGNESIUM 1.7 mg/dL (1.8-2.4)
[2023-10-15] MEDS ORDERED: ACETAMINOPHEN 325 MG TABLET (FP) PO PRN (14:46)
[2023-10-15 15:33] LABS: PH,URINE 5.5 (5.0-8.0); URINE APPEARANCE CLEAR; URINE BILIRUBIN NEGATIVE (NEGATIVE); URINE COLOR YELLOW; URINE GLUCOSE (UA) NEGATIVE (NEGATIVE); URINE KETONE NEGATIVE (NEGATIVE); URINE LEUK ESTERASE NEGATIVE (NEGATIVE); URINE NITRITE NEGATIVE (NEGATIVE); URINE PROTEIN NEGATIVE (NEGATIVE)
[2023-10-15] MEDS: AMINO ACIDS/PROTEIN HYDROLYS 30 ML LIQUID.PKT PO SCH (16:50)
[2023-10-16] MEDS: guaiFENesin 200 MG/10 ML 10 ML UNIT-DOSE CUPS PO PRN (06:07)
[2023-10-16 08:16] LABS: BASO % 0.9 % (0-2.0); EOS % 1.5 % (0-4.5); HEMATOCRIT 37.5 % (32.4-45.2); HEMOGLOBIN 12.8 GM/dL (10.7-15.3); MCH 33.7 pg (25.7-33.7); MCHC 34.1 g/dl (32.0-36.0); MEAN CELL VOLUME 98.8 fl (80-96); MEAN PLT VOLUME 7.6 fl (7.5-11.1); MONO % 8.5 % (3.8-10.2); NEUT % 48.1 % (42.8-82.8); PLATELET COUNT 263 10^3/uL (134-434); RDW 14.4 % (11.6-15.6); WHITE BLOOD COUNT 3.6 K/mm3 (4.0-10.0)
[2023-10-16 08:31] LABS: POTASSIUM 5.1 mmol/L (3.5-5.1)
[2023-10-16 08:32] LABS: CALCIUM 8.6 mg/dL (8.5-10.1)
[2023-10-16 08:33] LABS: BLOOD UREA NITROGEN 5.3 mg/dL (7-18)
[2023-10-16 08:36] LABS: CREATININE 0.4 mg/dL (0.55-1.3)
[2023-10-16] MEDS: ALBUTEROL SO4 2.5/IPRATROPIUM 0.5 INH SOL 3 ML VIAL.NEB. NEB PRN (17:16)
[2023-10-17 10:21] LABS: CALCIUM 8.9 mg/dL (8.5-10.1)
[2023-10-17 10:23] LABS: BLOOD UREA NITROGEN 6.4 mg/dL (7-18)
[2023-10-17 10:26] LABS: CREATININE 0.3 mg/dL (0.55-1.3)
[2023-10-17 10:31] LABS: N-TERMINAL BNP 1351.8 pg/ml (5-125)
[2023-10-17 10:32] LABS: BASO % 0.7 % (0-2.0); EOS % 1.9 % (0-4.5); HEMATOCRIT 36.7 % (32.4-45.2); HEMOGLOBIN 12.6 GM/dL (10.7-15.3); LYMPH % 35.2 % (8-40); MCHC 34.4 g/dl (32.0-36.0); MEAN PLT VOLUME 7.8 fl (7.5-11.1); MONO % 15.6 % (3.8-10.2); NEUT % 46.6 % (42.8-82.8); PLATELET COUNT 282 10^3/uL (134-434); RBC 3.82 M/mm3 (3.60-5.2); RDW 14.4 % (11.6-15.6); WHITE BLOOD COUNT 3.1 K/mm3 (4.0-10.0)
[2023-10-17] MEDS: FUROSEMIDE 40 MG TABLET (FP) PO ONE (17:25)
[2023-10-17] MEDS: FUROSEMIDE 40 MG/4 ML INJECTABLE VIAL IVPUSH ONE (17:37)
[2023-10-17] MEDS: ALBUTEROL SO4 2.5/IPRATROPIUM 0.5 INH SOL 3 ML VIAL.NEB. NEB SCH (20:07)
[2023-10-18 09:11] LABS: BASO % 0.8 % (0-2.0); EOS % 2.9 % (0-4.5); HEMATOCRIT 38.3 % (32.4-45.2); HEMOGLOBIN 13.2 GM/dL (10.7-15.3); LYMPH % 45.4 % (8-40); MCH 33.3 pg (25.7-33.7); MCHC 34.4 g/dl (32.0-36.0); MEAN CELL VOLUME 96.9 fl (80-96); MEAN PLT VOLUME 7.7 fl (7.5-11.1); MONO % 14.9 % (3.8-10.2); PLATELET COUNT 269 10^3/uL (134-434); RBC 3.95 M/mm3 (3.60-5.2); RDW 14.8 % (11.6-15.6); WHITE BLOOD COUNT 3.2 K/mm3 (4.0-10.0)
[2023-10-18 09:30] LABS: POTASSIUM 4.8 mmol/L (3.5-5.1)
[2023-10-18 09:31] LABS: CALCIUM 8.9 mg/dL (8.5-10.1)
[2023-10-18 09:33] LABS: BLOOD UREA NITROGEN 7.9 mg/dL (7-18)
[2023-10-18 09:38] LABS: CREATININE 0.4 mg/dL (0.55-1.3)
[2023-10-18] MEDS: FUROSEMIDE 40 MG TABLET (FP) PO SCH (10:15)
[2023-10-19 08:14] LABS: POTASSIUM 4.4 mmol/L (3.5-5.1)
[2023-10-19 08:19] LABS: BLOOD UREA NITROGEN 10.6 mg/dL (7-18)
[2023-10-19 08:20] LABS: CALCIUM 8.8 mg/dL (8.5-10.1)
[2023-10-19 08:21] LABS: HEMATOCRIT 37.6 % (32.4-45.2); HEMOGLOBIN 13.2 GM/dL (10.7-15.3); MCH 33.8 pg (25.7-33.7); MEAN CELL VOLUME 96.6 fl (80-96); MEAN PLT VOLUME 7.9 fl (7.5-11.1); PLATELET COUNT 239 10^3/uL (134-434); RBC 3.89 M/mm3 (3.60-5.2); RDW 14.5 % (11.6-15.6); WHITE BLOOD COUNT 3.2 K/mm3 (4.0-10.0)
[2023-10-19 08:22] LABS: CREATININE 0.3 mg/dL (0.55-1.3)
[2023-10-19] MEDS: BENZOCAINE/MENTH/CETYLPYRD CL 1 EACH LOZENGE MM PRN (09:36)
[2023-10-19 10:39] VITALS: BMI 15.2
[2023-10-19 16:06] LABS: MAGNESIUM 1.8 mg/dL (1.8-2.4)
[2023-10-19 22:31] VITALS: RESP 18
[2023-10-20 09:26] VITALS: BP 114/84; PULSE 84; TEMP 98.1
[2023-10-20 11:04] LABS: HEMOGLOBIN 13.3 GM/dL (10.7-15.3); MCH 33.1 pg (25.7-33.7); MCHC 34.1 g/dl (32.0-36.0); MEAN CELL VOLUME 97.1 fl (80-96); MEAN PLT VOLUME 8.1 fl (7.5-11.1); PLATELET COUNT 252 10^3/uL (134-434); RBC 4.01 M/mm3 (3.60-5.2); RDW 14.7 % (11.6-15.6); WHITE BLOOD COUNT 3.4 K/mm3 (4.0-10.0)
[2023-10-20 11:25] LABS: POTASSIUM 4.2 mmol/L (3.5-5.1)
[2023-10-20 11:30] LABS: CALCIUM 9.4 mg/dL (8.5-10.1)
[2023-10-20 11:31] LABS: BLOOD UREA NITROGEN 14.4 mg/dL (7-18); CHOLESTEROL 165 mg/dL (50-200); MAGNESIUM 2.1 mg/dL (1.8-2.4)
[2023-10-20 11:32] LABS: LDL CHOLESTEROL (ONLY SJRH) 100 mg/dL (5-100)
[2023-10-20 11:34] LABS: ALBUMIN 2.9 g/dl (3.4-5.0); CREATININE 0.4 mg/dL (0.55-1.3); HDL CHOLESTEROL 50 mg/dL (40-60); PHOSPHOROUS 3.6 mg/dL (2.5-4.9)
[2023-10-20 11:35] LABS: TOT PROT 7.1 g/dl (6.4-8.2)
[2023-10-20 11:36] LABS: BILIRUBIN,TOTAL 0.3 mg/dL (0.2-1)
== END 2023-10-20 12:15 | disposition home or self-care (01) | DRG 194 ==
LOC: JER 19:31 → JERBED 10-15 01:07 → J7W 10-15 02:49 → OBSVTOIN 10-15 09:44
PROVIDERS: ADMIT Internal Medicine; ATTEND Internal Medicine
DX: J18.9 Pneumonia, unspecified organism (principal); I50.32 Chronic diastolic (congestive) heart failure; R64 Cachexia; Z68.1 Body mass index [BMI] 19.9 or less, adult; G40.909 Epilepsy, unspecified, not intractable, without status epilepticus; J44.9 Chronic obstructive pulmonary disease, unspecified; F10.20 Alcohol dependence, uncomplicated; F17.210 Nicotine dependence, cigarettes, uncomplicated; F19.94 Other psychoactive substance use, unspecified with psychoactive substance-induced mood disorder; R29.6 Repeated falls; F41.8 Other specified anxiety disorders; Z88.0 Allergy status to penicillin; E83.42 Hypomagnesemia
CPT/HCPCS: 0241U-QW; 36415; 71046-TC-FY; 80048; 80053; 80061; 81003; 83036; 83735; 83880; 84100; 84484; 85025; 85027; 85610; 85730; 87070; 87086; 87205; 87899; 93005; 93010; 93306-TC; 93971-TC; 94640; 97116-GP; 97161-GP; 99285-25; G0378; J0131

== ENCOUNTER 2023-11-20 13:48 | Emergency (ER) | payer OTHER ==
[2023-11-20 14:21] VITALS: BP 92/68; PULSE 88; RESP 16; TEMP 98.7; BMI 50.7
[2023-11-20] MEDS ORDERED: ACETAMINOPHEN INJECTION 100 ML ONE (14:40)
[2023-11-20] MEDS: ACETAMINOPHEN 1000 MG/100 ML BAG IVPB ONE (15:13)
[2023-11-20] MEDS: DEXTROSE 5%-NORMAL SALINE 1,000 ML IV SCH (15:14)
[2023-11-20 15:19] LABS: BASO % 0.9 % (0-2.0); EOS % 1.4 % (0-4.5); HEMATOCRIT 43.2 % (32.4-45.2); HEMOGLOBIN 14.4 GM/dL (10.7-15.3); LYMPH % 53.6 % (8-40); MCH 31.7 pg (25.7-33.7); MCHC 33.3 g/dl (32.0-36.0); MEAN CELL VOLUME 95.1 fl (80-96); MEAN PLT VOLUME 8.4 fl (7.5-11.1); MONO % 11.3 % (3.8-10.2); NEUT % 32.8 % (42.8-82.8); PH,URINE 5.5 (5.0-8.0); PLATELET COUNT 192 10^3/uL (134-434); RBC 4.55 M/mm3 (3.60-5.2); RDW 14.7 % (11.6-15.6); URINE APPEARANCE CLEAR; URINE BILIRUBIN NEGATIVE (NEGATIVE); URINE COLOR YELLOW; URINE GLUCOSE (UA) NEGATIVE (NEGATIVE); URINE KETONE NEGATIVE (NEGATIVE); URINE LEUK ESTERASE NEGATIVE (NEGATIVE); URINE NITRITE NEGATIVE (NEGATIVE); URINE PROTEIN NEGATIVE (NEGATIVE); URINE UROBILINOGEN 0.2 mg/dL (0.2-1.0); WHITE BLOOD COUNT 4.3 K/mm3 (4.0-10.0)
[2023-11-20 15:27] LABS: COCAINE, UR NEGATIVE (NEGATIVE); METHADONE, UR NEGATIVE (NEGATIVE); OPIATES, URI NEGATIVE (NEGATIVE); URINE BARBITURATES NEGATIVE (NEGATIVE); URINE BENZODIAZEPINES NEGATIVE (NEGATIVE)
[2023-11-20 15:28] LABS: PHENCYCLIDINE,URINE NEGATIVE (NEGATIVE); URINE AMPHETAMINES NEGATIVE (NEGATIVE)
[2023-11-20 15:51] LABS: CHLORIDE 108 mmol/L (98-107); SODIUM 144 mmol/L (136-145)
[2023-11-20 15:54] LABS: ALBUMIN 3.4 g/dl (3.4-5.0); BLOOD UREA NITROGEN 3.3 mg/dL (7-18); CALCIUM 8.8 mg/dL (8.5-10.1); CO2 24 mmol/L (21-32)
[2023-11-20 15:55] LABS: GLUCOSE,RANDOM 71 mg/dL (74-106)
[2023-11-20 15:57] LABS: CREATININE 0.4 mg/dL (0.55-1.3); SGOT/AST 75 U/L (15-37); SGPT/ALT 26 U/L (13-61)
[2023-11-20 15:59] LABS: ALK PHOS 98 U/L (45-117); BILIRUBIN,TOTAL 0.3 mg/dL (0.2-1); TOT PROT 8.1 g/dl (6.4-8.2)
[2023-11-20 16:03] LABS: ANION GAP 12 mmol/L (4-13); POTASSIUM 6.1 mmol/L (3.5-5.1)
[2023-11-20 20:27] LABS: POTASSIUM 4.6 mmol/L (3.5-5.1)
[2023-11-20 20:28] LABS: CALCIUM 8.2 mg/dL (8.5-10.1)
[2023-11-20 20:32] LABS: CREATININE 0.4 mg/dL (0.55-1.3)
== END 2023-11-20 20:30 | disposition home or self-care (01) ==
LOC: JER 13:48
PROC: 3E033NZ Introduction of Analgesics, Hypnotics, Sedatives into Peripheral Vein, Percutaneous Approach (ICD-10-PCS; principal; 2023-11-20)
DX: F10.10 Alcohol abuse, uncomplicated (principal); R51.9 Headache, unspecified; R42 Dizziness and giddiness; M79.602 Pain in left arm; M79.604 Pain in right leg; W10.8XXA Fall (on) (from) other stairs and steps, initial encounter; Y90.8 Blood alcohol level of 240 mg/100 ml or more
CPT/HCPCS: 70450-TC; 70486-TC; 71046-TC-FY; 72125-TC; 72170-TC-FY; 73030-TC-LT-FY; 73552-TC-RT-FY; 73562-TC-RT-FY; 80048; 80053; 80307; 81003; 84484; 85025; 87086; 99284-25; J0131

== ENCOUNTER 2024-11-01 12:04 | Emergency (ER) | payer OTHER ==
[2024-11-01 12:22] VITALS: TEMP 98.5; BMI 17.8
[2024-11-01] MEDS ORDERED: ALBUTEROL SO4 2.5/IPRATROPIUM 0.5 INH SOL 3 ML VIAL.NEB. NEB ONE ×2 (12:56→15:39)
[2024-11-01] MEDS ORDERED: ACETAMINOPHEN INJECTION 100 ML ONE (12:57)
[2024-11-01] MEDS: ALBUTEROL SO4 2.5/IPRATROPIUM 0.5 INH SOL 3 ML VIAL.NEB. NEB ONE ×2 (13:01→15:43)
[2024-11-01] MEDS: ACETAMINOPHEN 1000 MG/100 ML BAG IVPB ONE (13:02)
[2024-11-01 14:38] LABS: ABSOLUTE IMMATURE GRANULOCYTES 0.02 x10^3/uL (0.0-0.031); BASOPHILS # 0.04 x10^3/uL (0.01-0.08); EOSINOPHIL % 0.1 % (0.7-5.8); EOSINOPHILS # 0.01 x10^3/uL (0.04-0.36); MCHC 32.4 g/dl (32.2-35.5); MEAN CELL VOLUME 89.4 fl (79.4-94.8); MEAN PLT VOLUME 9.9 fl (9.4-12.3); MONOCYTE # 0.49 x10^3/uL (0.24-0.86); MONOCYTE % 6.4 % (4.7-12.5); RDW 13.9 % (12.4-16.6)
[2024-11-01 14:45] LABS: INR 1.03 (0.83-1.09); PROTHROMBIN TIME (PATIENT) 11.2 SEC (9.7-13.0)
[2024-11-01 14:47] LABS: ACTIVATED PTT 29.5 SECONDS (25.2-36.5)
[2024-11-01 14:59] LABS: GLUCOSE,RANDOM 114.0 mg/dL (74-106); TOT PROT 7.9 g/dl (6.4-8.2)
[2024-11-01 15:00] LABS: CO2 25.0 mmol/L (21-32)
[2024-11-01 15:01] LABS: ALK PHOS 107.0 U/L (40-150)
[2024-11-01 15:05] LABS: CREATININE 0.51 mg/dL (0.55-1.3); SGOT/AST 30.0 U/L (5-34); SGPT/ALT 18.0 U/L (0-55)
[2024-11-01] MEDS ORDERED: ACETAMINOPHEN 325 MG TABLET (FP) ONE (16:22)
[2024-11-01] MEDS: ACETAMINOPHEN 325 MG TABLET (FP) PO ONE (16:30)
[2024-11-01] MEDS ORDERED: guaiFENesin 200 MG/10 ML 10 ML UNIT-DOSE CUPS ONE (16:31)
[2024-11-01] MEDS: guaiFENesin 200 MG/10 ML 10 ML UNIT-DOSE CUPS PO ONE (16:33)
[2024-11-01] MEDS ORDERED: DEXAMETHASONE SOD PHOSPHATE 10 MG/1 ML VIAL ONE (17:19)
[2024-11-01] MEDS: DEXAMETHASONE SOD PHOSPHATE 10 MG/1 ML VIAL PO ONE (17:26)
[2024-11-01 17:40] VITALS: BP 127/76; PULSE 96; RESP 22
== END 2024-11-01 18:16 | disposition home or self-care (01) ==
LOC: JER 12:04
PROC: 3E0F7GC Introduction of Other Therapeutic Substance into Respiratory Tract, Via Natural or Artificial Opening (ICD-10-PCS; principal; 2024-11-01)
DX: J45.901 Unspecified asthma with (acute) exacerbation (principal); R07.89 Other chest pain; R06.02 Shortness of breath; R05.9 Cough, unspecified
CPT/HCPCS: 36415; 71045-TC-FY; 80053; 84484; 85025; 85610; 85730; 93005; 93010; 99285-25; J1100